=== PATIENT | female | born 1955 | race Caucasian/White ===

== ENCOUNTER 2022-09-24 16:32 | Emergency (ER) | payer OTHER ==
[2022-09-24 17:09] VITALS: BP 136/92; PULSE 72; RESP 18; BMI 28.1
[2022-09-24] MEDS ORDERED: ACETAMINOPHEN 325 MG TABLET (FP) PO ONE (18:06)
[2022-09-24] MEDS ORDERED: ACETAMINOPHEN 325 MG TABLET (FP) ONE (18:10)
[2022-09-24] MEDS ORDERED: oxyCODONE HCL 5 MG TABLET PO ONE (18:40)
[2022-09-24] MEDS ORDERED: oxyCODONE HCL 5 MG TABLET ONE (18:42)
[2022-09-24 19:33] LABS: EPI CELLS 12 /uL (0-25.1); HYALINE CASTS 0 /uL (0-3.1); URINE APPEARANCE CLEAR; URINE BACTERIA 76 /uL (0-1359); URINE BILIRUBIN NEGATIVE (NEGATIVE); URINE COLOR YELLOW; URINE GLUCOSE (UA) NEGATIVE (NEGATIVE); URINE KETONE NEGATIVE (NEGATIVE); URINE LEUK ESTERASE 1+ (NEGATIVE); URINE NITRITE NEGATIVE (NEGATIVE); URINE PROTEIN NEGATIVE (NEGATIVE); URINE RBC 27 /uL (0-23.9); URINE UROBILINOGEN 0.2 mg/dL (0.2-1.0); URINE WBC 59 /uL (0-25.8)
== END 2022-09-25 00:29 | disposition home or self-care (01) ==
LOC: JER 16:32
DX: G44.319 Acute post-traumatic headache, not intractable (principal); R30.0 Dysuria; R11.0 Nausea; W22.8XXA Striking against or struck by other objects, initial encounter; Y93.F2 Activity, caregiving, lifting; Y92.9 Unspecified place or not applicable; Z91.81 History of falling
CPT/HCPCS: 70450-TC; 72125-TC; 81003; 87086; 87186; 99284-25

== ENCOUNTER 2022-12-28 12:32 | Inpatient (IN) | payer OTHER ==
[2022-12-28 13:39] LABS: BASO % 0.3 % (0-2.0); EOS % 2.9 % (0-4.5); HEMATOCRIT 41.5 % (32.4-45.2); HEMOGLOBIN 13.7 GM/dL (10.7-15.3); LYMPH % 17.6 % (8-40); MCH 32.8 pg (25.7-33.7); MEAN CELL VOLUME 99.4 fl (80-96); MEAN PLT VOLUME 7.4 fl (7.5-11.1); MONO % 4.5 % (3.8-10.2); NEUT % 74.7 % (42.8-82.8); PLATELET COUNT 294 10^3/uL (134-434); RBC 4.18 M/mm3 (3.60-5.2); RDW 15.7 % (11.6-15.6)
[2022-12-28 13:47] LABS: INR 1.03 (0.83-1.09)
[2022-12-28 13:50] LABS: ACTIVATED PTT 31.4 SECONDS (25.2-36.5)
[2022-12-28 13:59] LABS: VENOUS BASE EXCESS 2.2 mmol/L (-2-2); VENOUS O2 SATURATION 73.1 % (70-80); VENOUS PCO2 52.4 mmHg (38-52); VENOUS PH 7.357 (7.310-7.410)
[2022-12-28 14:16] LABS: SARS COV-2 MOLECULAR IN-HOUSE NEGATIVE (NEGATIVE)
[2022-12-28 14:27] LABS: POTASSIUM 3.5 mmol/L (3.5-5.1)
[2022-12-28 14:28] LABS: ALBUMIN 3.5 g/dl (3.4-5.0); BLOOD UREA NITROGEN 10.1 mg/dL (7-18); CALCIUM 9.3 mg/dL (8.5-10.1)
[2022-12-28 14:32] LABS: CREATININE 0.3 mg/dL (0.55-1.3)
[2022-12-28 14:34] LABS: BILIRUBIN,TOTAL 0.4 mg/dL (0.2-1)
[2022-12-28 14:37] LABS: N-TERMINAL BNP 149.8 pg/ml (5-125)
[2022-12-28] MEDS ORDERED: AZITHROMYCIN IVPB 500 MG in DEXTROSE 5%-WATER - 250 ML IVPB ONE (14:37)
[2022-12-28 14:53] LABS: ARTERIAL BLD GAS O2 SATURATION 97.6 % (95-98); ARTERIAL BLOOD GAS BASE EXCESS 1.2 mmol/L (-2-2); ARTERIAL BLOOD GAS PO2 103.5 mmHg (80-100); ARTERIAL BLOOD GAS pH 7.382 (7.350-7.450)
[2022-12-28 14:54] LABS: ALLENS TEST POSITIVE
[2022-12-28] MEDS ORDERED: AZITHROMYCIN IVPB 500 MG/250 ML BAG IVPB ONE ×2 (15:06→15:15)
[2022-12-28] MEDS ORDERED: CEFTRIAXONE 1 GM/50 ML BAG ONE (15:06)
[2022-12-28 16:44] LABS: EPI CELLS 1 /uL (0-25.1); HYALINE CASTS 0 /uL (0-3.1); PH,URINE 5.5 (5.0-8.0); URINE APPEARANCE CLEAR; URINE BILIRUBIN NEGATIVE (NEGATIVE); URINE COLOR YELLOW; URINE GLUCOSE (UA) NEGATIVE (NEGATIVE); URINE KETONE NEGATIVE (NEGATIVE); URINE LEUK ESTERASE 2+ (NEGATIVE); URINE NITRITE POSITIVE (NEGATIVE); URINE PROTEIN NEGATIVE (NEGATIVE); URINE RBC 32 /uL (0-23.9); URINE UROBILINOGEN 0.2 mg/dL (0.2-1.0); URINE WBC 188 /uL (0-25.8)
[2022-12-28] MEDS ORDERED: ZOLPIDEM TARTRATE 5 MG TABLET PO ONE (23:53)
[2022-12-28] MEDS ORDERED: ZOLPIDEM TARTRATE 5 MG TABLET ONE (23:55)
[2022-12-29 03:54] VITALS: BMI 28.6
[2022-12-29 08:43] LABS: HEMATOCRIT 39.1 % (32.4-45.2); HEMOGLOBIN 12.6 GM/dL (10.7-15.3); MCH 32.7 pg (25.7-33.7); MCHC 32.1 g/dl (32.0-36.0); MEAN CELL VOLUME 101.6 fl (80-96); MEAN PLT VOLUME 7.7 fl (7.5-11.1); PLATELET COUNT 290 10^3/uL (134-434); RBC 3.85 M/mm3 (3.60-5.2); RDW 15.2 % (11.6-15.6); WHITE BLOOD COUNT 8.3 K/mm3 (4.0-10.0)
[2022-12-29] MEDS ORDERED: SUMAtriptan SUCCINATE 50 MG TABLET PO PRN (09:06)
[2022-12-29 09:10] LABS: POTASSIUM 3.5 mmol/L (3.5-5.1)
[2022-12-29 09:14] LABS: CALCIUM 8.7 mg/dL (8.5-10.1); MAGNESIUM 2.1 mg/dL (1.8-2.4)
[2022-12-29 09:15] LABS: BLOOD UREA NITROGEN 13.3 mg/dL (7-18)
[2022-12-29 09:17] LABS: PHOSPHOROUS 2.7 mg/dL (2.5-4.9)
[2022-12-29 09:18] LABS: CREATININE 0.2 mg/dL (0.55-1.3)
[2022-12-29 09:51] LABS: ANISOCYTOSIS 1+; MACROCYTOSIS 1+
[2022-12-29] MEDS ORDERED: predniSONE 10 MG, predniSONE 5 MG PO SCH (10:00)
[2022-12-29] MEDS ORDERED: VALSARTAN 160 MG TABLET PO SCH (10:00)
[2022-12-29] MEDS ORDERED: predniSONE 10 MG TABLET (UD) PO SCH (10:00)
[2022-12-29] MEDS ORDERED: [UNRECOGNIZED DRUG - OTHER] PO SCH (10:00)
[2022-12-29] MEDS ORDERED: CEFTRIAXONE 1 GM in DEXTROSE 5%-WATER - 50 ML IVPB SCH (10:00)
[2022-12-29] MEDS ORDERED: AZITHROMYCIN IVPB 500 MG/250 ML BAG IVPB SCH (10:00)
[2022-12-29] MEDS ORDERED: TOFACITINIB CITRATE 10 MG PO SCH (10:00)
[2022-12-29] MEDS ORDERED: PATIENT'S OWN MEDICATION (NON-FORMULARY) (Mirabegron [Myrbetriq] 50 MG Tab.Er.24h) PO SCH (10:00)
[2022-12-29] MEDS: clonazePAM 0.5 MG TABLET PO SCH ×2 (10:20→21:52)
[2022-12-29] MEDS ORDERED: ALBUTEROL SULFATE 0.021% (0.63 MG/3 ML) VIAL.NEB NEB PRN (11:01)
[2022-12-29] MEDS ORDERED: oxyCODONE HCL 5 MG TABLET PO PRN (13:56)
[2022-12-29] MEDS ORDERED: ZOLPIDEM TARTRATE 5 MG TABLET PO PRN (22:00)
[2022-12-30] MEDS ORDERED: SUMAtriptan SUCCINATE 50 MG TABLET PO PRN (08:16)
[2022-12-30] MEDS ORDERED: clonazePAM 0.5 MG TABLET PO SCH (10:00)
[2022-12-30] MEDS ORDERED: CEFTRIAXONE 2 GM in DEXTROSE 5%-WATER 100 ML IVPB SCH (10:00)
[2022-12-30] MEDS: CEFTRIAXONE 2 GM in DEXTROSE 5%-WATER 100 ML IVPB SCH (10:16)
[2022-12-30] MEDS: AZITHROMYCIN IVPB 500 MG/250 ML BAG IVPB SCH (10:17)
[2022-12-30] MEDS: oxyCODONE HCL 5 MG TABLET PO PRN ×2 (10:32→21:46)
[2022-12-30] MEDS: VALSARTAN 160 MG TABLET PO SCH (12:43)
[2022-12-30] MEDS: [UNRECOGNIZED DRUG - OTHER] PO SCH ×2 (14:31→21:42)
[2022-12-30] MEDS: clonazePAM 0.5 MG TABLET PO PRN (17:33)
[2022-12-31] MEDS: ZOLPIDEM TARTRATE 5 MG TABLET PO PRN ×2 (01:00→21:23)
[2022-12-31] MEDS: oxyCODONE HCL 5 MG TABLET PO PRN ×3 (06:41→19:02)
[2022-12-31 07:29] LABS: BASO % 0.3 % (0-2.0); EOS % 4.1 % (0-4.5); HEMATOCRIT 38.3 % (32.4-45.2); HEMOGLOBIN 12.4 GM/dL (10.7-15.3); LYMPH % 39.6 % (8-40); MCH 32.7 pg (25.7-33.7); MCHC 32.4 g/dl (32.0-36.0); MEAN CELL VOLUME 100.9 fl (80-96); MEAN PLT VOLUME 8.4 fl (7.5-11.1); MONO % 6.7 % (3.8-10.2); NEUT % 49.3 % (42.8-82.8); PLATELET COUNT 278 10^3/uL (134-434); RBC 3.79 M/mm3 (3.60-5.2); RDW 15.8 % (11.6-15.6)
[2022-12-31 07:42] LABS: WHITE BLOOD COUNT 9.6 K/mm3 (4.0-10.0)
[2022-12-31 07:45] LABS: ALBUMIN 2.9 g/dl (3.4-5.0)
[2022-12-31 07:46] LABS: CALCIUM 8.5 mg/dL (8.5-10.1)
[2022-12-31 07:49] LABS: BILIRUBIN,TOTAL 0.6 mg/dL (0.2-1); CREATININE 0.2 mg/dL (0.55-1.3); TOT PROT 6.1 g/dl (6.4-8.2)
[2022-12-31] MEDS: VALSARTAN 160 MG TABLET PO SCH (09:03)
[2022-12-31] MEDS: CEFTRIAXONE 2 GM in DEXTROSE 5%-WATER 100 ML IVPB SCH (09:04)
[2022-12-31] MEDS: [UNRECOGNIZED DRUG - OTHER] PO SCH ×2 (09:05→21:40)
[2022-12-31] MEDS: AZITHROMYCIN IVPB 500 MG/250 ML BAG IVPB SCH (09:05)
[2022-12-31] MEDS ORDERED: INSULIN (NOVOLOG) ASPART 100 UNITS/ML 10ML VIAL ONE (11:17)
[2022-12-31] MEDS: TOFACITINIB 11 MG PO SCH (12:32)
[2022-12-31] MEDS: PATIENT'S OWN MEDICATION (NON-FORMULARY) (Mirabegron [Myrbetriq] 50 MG) PO SCH ×2 (15:18→15:23)
[2022-12-31] MEDS: NORTRIPTYLINE HCL 25 MG CAPSULE PO SCH ×2 (15:18→21:24)
[2022-12-31] MEDS: clonazePAM 0.5 MG TABLET PO PRN (15:19)
[2022-12-31] MEDS: POLYETHYLENE GLYCOL (HEALTHYLAX) 3350 17 GM PACKET PO SCH (16:03)
[2022-12-31] MEDS: propRANOLol HCL 10 MG TABLET PO SCH (16:39)
[2022-12-31] MEDS: ERTAPENEM SODIUM 1 GM in SODIUM CHLORIDE 50 ML IVPB SCH (21:23)
[2022-12-31] MEDS: SENNOSIDES 8.6MG TABLET (FP) PO SCH (21:24)
[2023-01-01] MEDS: oxyCODONE HCL 5 MG TABLET PO PRN ×2 (06:48→17:21)
[2023-01-01] MEDS: VALSARTAN 160 MG TABLET PO SCH (09:15)
[2023-01-01] MEDS: POLYETHYLENE GLYCOL (HEALTHYLAX) 3350 17 GM PACKET PO SCH (09:15)
[2023-01-01] MEDS: propRANOLol HCL 10 MG TABLET PO SCH (09:16)
[2023-01-01] MEDS: AZITHROMYCIN IVPB 500 MG/250 ML BAG IVPB SCH (09:16)
[2023-01-01] MEDS: NORTRIPTYLINE HCL 25 MG CAPSULE PO SCH ×3 (09:17→21:10)
[2023-01-01] MEDS: TOFACITINIB 11 MG PO SCH (09:18)
[2023-01-01] MEDS: [UNRECOGNIZED DRUG - OTHER] PO SCH ×2 (09:18→21:09)
[2023-01-01] MEDS: PATIENT'S OWN MEDICATION (NON-FORMULARY) (Mirabegron [Myrbetriq] 50 MG) PO SCH (09:19)
[2023-01-01] MEDS: PANTOPRAZOLE 40 MG TABLET PO SCH (11:32)
[2023-01-01] MEDS: ERTAPENEM SODIUM 1 GM in SODIUM CHLORIDE 50 ML IVPB SCH (11:32)
[2023-01-01] MEDS: clonazePAM 0.5 MG TABLET PO PRN (11:32)
[2023-01-01] MEDS: SENNOSIDES 8.6MG TABLET (FP) PO SCH (21:07)
[2023-01-01] MEDS: ZOLPIDEM TARTRATE 5 MG TABLET PO PRN (21:08)
[2023-01-01] MEDS ORDERED: ZOLPIDEM TARTRATE 5 MG TABLET PO ONE (21:21)
[2023-01-02] MEDS: AZITHROMYCIN IVPB 500 MG/250 ML BAG IVPB SCH (09:51)
[2023-01-02] MEDS: POLYETHYLENE GLYCOL (HEALTHYLAX) 3350 17 GM PACKET PO SCH (09:51)
[2023-01-02] MEDS: VALSARTAN 160 MG TABLET PO SCH (09:53)
[2023-01-02] MEDS: propRANOLol HCL 10 MG TABLET PO SCH (09:53)
[2023-01-02] MEDS: PANTOPRAZOLE 40 MG TABLET PO SCH (09:54)
[2023-01-02] MEDS: PATIENT'S OWN MEDICATION (NON-FORMULARY) (Mirabegron [Myrbetriq] 50 MG) PO SCH (09:56)
[2023-01-02] MEDS: NORTRIPTYLINE HCL 25 MG CAPSULE PO SCH ×2 (09:59→21:14)
[2023-01-02] MEDS: [UNRECOGNIZED DRUG - OTHER] PO SCH ×2 (10:05→21:14)
[2023-01-02] MEDS: TOFACITINIB 11 MG PO SCH (10:06)
[2023-01-02] MEDS: ERTAPENEM SODIUM 1 GM in SODIUM CHLORIDE 50 ML IVPB SCH (10:39)
[2023-01-02] MEDS: oxyCODONE HCL 5 MG TABLET PO PRN ×2 (11:26→21:14)
[2023-01-02] MEDS: HEPARIN NA (PORCINE) 5,000 UNITS/ML 1ML VIAL SQ SCH ×2 (11:28→21:14)
[2023-01-02] MEDS: amLODIPine BESYLATE 5 MG TABLET (FP) PO SCH (11:28)
[2023-01-02] MEDS: ALBUTEROL SULFATE 0.021% (0.63 MG/3 ML) VIAL.NEB NEB PRN (15:16)
[2023-01-02] MEDS ORDERED: FUROSEMIDE 40 MG/5 ML UNIT-DOSE CUP PO ONE (16:55)
[2023-01-02] MEDS ORDERED: FUROSEMIDE 40 MG TABLET (FP) PO ONE (17:15)
[2023-01-02] MEDS: SENNOSIDES 8.6MG TABLET (FP) PO SCH (21:14)
[2023-01-02] MEDS: clonazePAM 0.5 MG TABLET PO PRN (21:14)
[2023-01-03] MEDS: oxyCODONE HCL 5 MG TABLET PO PRN ×3 (02:27→21:39)
[2023-01-03 08:12] LABS: CHLORIDE 101 mmol/L (98-107); POTASSIUM 3.5 mmol/L (3.5-5.1); SODIUM 141 mmol/L (136-145)
[2023-01-03 08:19] LABS: ALBUMIN 2.9 g/dl (3.4-5.0); CALCIUM 8.5 mg/dL (8.5-10.1)
[2023-01-03 08:20] LABS: ANION GAP 5 mmol/L (4-13); BLOOD UREA NITROGEN 11.4 mg/dL (7-18); CO2 34 mmol/L (21-32); GLUCOSE,RANDOM 85 mg/dL (74-106)
[2023-01-03 08:21] LABS: CREATININE < 0.2 mg/dL (0.55-1.3); SGOT/AST 15 U/L (15-37)
[2023-01-03 08:22] LABS: BILIRUBIN,TOTAL 0.3 mg/dL (0.2-1); TOT PROT 5.9 g/dl (6.4-8.2)
[2023-01-03 08:23] LABS: ALK PHOS 56 U/L (45-117); SGPT/ALT 20 U/L (13-61)
[2023-01-03 08:37] LABS: BASO % 0.5 % (0-2.0); EOS % 3.1 % (0-4.5); HEMATOCRIT 37.4 % (32.4-45.2); HEMOGLOBIN 11.9 GM/dL (10.7-15.3); MCH 32.7 pg (25.7-33.7); MCHC 31.8 g/dl (32.0-36.0); MEAN CELL VOLUME 102.6 fl (80-96); MEAN PLT VOLUME 8.4 fl (7.5-11.1); NEUT % 59.4 % (42.8-82.8); PLATELET COUNT 267 10^3/uL (134-434); RBC 3.64 M/mm3 (3.60-5.2); RDW 14.9 % (11.6-15.6); WHITE BLOOD COUNT 8.5 K/mm3 (4.0-10.0)
[2023-01-03] MEDS: HEPARIN NA (PORCINE) 5,000 UNITS/ML 1ML VIAL SQ SCH ×2 (09:18→21:15)
[2023-01-03] MEDS: PANTOPRAZOLE 40 MG TABLET PO SCH (09:19)
[2023-01-03] MEDS: POLYETHYLENE GLYCOL (HEALTHYLAX) 3350 17 GM PACKET PO SCH (09:20)
[2023-01-03] MEDS: amLODIPine BESYLATE 5 MG TABLET (FP) PO SCH (09:20)
[2023-01-03] MEDS: clonazePAM 0.5 MG TABLET PO PRN ×2 (09:20→21:15)
[2023-01-03] MEDS: VALSARTAN 160 MG TABLET PO SCH (09:20)
[2023-01-03] MEDS: propRANOLol HCL 10 MG TABLET PO SCH (09:22)
[2023-01-03] MEDS: NORTRIPTYLINE HCL 25 MG CAPSULE PO SCH ×2 (09:22→21:15)
[2023-01-03] MEDS: [UNRECOGNIZED DRUG - OTHER] PO SCH ×2 (09:23→21:14)
[2023-01-03] MEDS: TOFACITINIB 11 MG PO SCH (09:23)
[2023-01-03 09:37] LABS: ANISOCYTOSIS 0; MACROCYTOSIS 2+
[2023-01-03] MEDS: PATIENT'S OWN MEDICATION (NON-FORMULARY) (Mirabegron [Myrbetriq] 50 MG) PO SCH (09:50)
[2023-01-03] MEDS: ERTAPENEM SODIUM 1 GM in SODIUM CHLORIDE 50 ML IVPB SCH (10:25)
[2023-01-03] MEDS: AZITHROMYCIN IVPB 500 MG/250 ML BAG IVPB SCH (10:48)
[2023-01-03] MEDS: POTASSIUM CHLORIDE ORAL LIQUID 20 MEQ/15 ML PO SCH (12:12)
[2023-01-03] MEDS: FUROSEMIDE 40 MG TABLET (FP) PO SCH (12:12)
[2023-01-03] MEDS: PHENOL 177 ML SPRAY BOTTLE MM PRN ×2 (16:46→21:15)
[2023-01-03] MEDS: SENNOSIDES 8.6MG TABLET (FP) PO SCH (21:14)
[2023-01-03] MEDS: ALBUTEROL SULFATE 0.021% (0.63 MG/3 ML) VIAL.NEB NEB PRN (22:33)
[2023-01-04] MEDS: clonazePAM 0.5 MG TABLET PO PRN ×2 (06:33→21:04)
[2023-01-04] MEDS: AZITHROMYCIN IVPB 500 MG/250 ML BAG IVPB SCH (10:00)
[2023-01-04] MEDS: AMINO ACIDS/PROTEIN HYDROLYS 30 ML LIQUID.PKT PO SCH (10:55)
[2023-01-04] MEDS: VALSARTAN 160 MG TABLET PO SCH (10:56)
[2023-01-04] MEDS: MULTIVITAMINS (DAILY MVI) TABLET (FP) PO SCH (10:58)
[2023-01-04] MEDS: HEPARIN NA (PORCINE) 5,000 UNITS/ML 1ML VIAL SQ SCH ×2 (10:58→21:03)
[2023-01-04] MEDS: FUROSEMIDE 40 MG TABLET (FP) PO SCH (10:59)
[2023-01-04] MEDS: propRANOLol HCL 10 MG TABLET PO SCH (10:59)
[2023-01-04] MEDS: amLODIPine BESYLATE 5 MG TABLET (FP) PO SCH (10:59)
[2023-01-04] MEDS: ERTAPENEM SODIUM 1 GM in SODIUM CHLORIDE 50 ML IVPB SCH (11:00)
[2023-01-04] MEDS: POTASSIUM CHLORIDE ORAL LIQUID 20 MEQ/15 ML PO SCH (11:00)
[2023-01-04] MEDS: PANTOPRAZOLE 40 MG TABLET PO SCH (11:02)
[2023-01-04] MEDS: PATIENT'S OWN MEDICATION (NON-FORMULARY) (Mirabegron [Myrbetriq] 50 MG) PO SCH (11:02)
[2023-01-04] MEDS: ASCORBIC ACID 500 MG TABLET (FP) PO SCH (11:05)
[2023-01-04] MEDS: TOFACITINIB 11 MG PO SCH (11:12)
[2023-01-04] MEDS: [UNRECOGNIZED DRUG - OTHER] PO SCH ×2 (11:17→21:04)
[2023-01-04] MEDS: NORTRIPTYLINE HCL 25 MG CAPSULE PO SCH ×2 (11:22→21:03)
[2023-01-04] MEDS: POLYETHYLENE GLYCOL (HEALTHYLAX) 3350 17 GM PACKET PO SCH (14:41)
[2023-01-04] MEDS: oxyCODONE HCL 5 MG TABLET PO PRN (16:30)
[2023-01-04] MEDS: SENNOSIDES 8.6MG TABLET (FP) PO SCH (21:04)
[2023-01-04] MEDS: PHENOL 177 ML SPRAY BOTTLE MM PRN (21:16)
[2023-01-05] MEDS: oxyCODONE HCL 5 MG TABLET PO PRN (06:47)
[2023-01-05] MEDS: AMINO ACIDS/PROTEIN HYDROLYS 30 ML LIQUID.PKT PO SCH (10:21)
[2023-01-05] MEDS: MULTIVITAMINS (DAILY MVI) TABLET (FP) PO SCH (10:22)
[2023-01-05] MEDS: ASCORBIC ACID 500 MG TABLET (FP) PO SCH (10:22)
[2023-01-05] MEDS: propRANOLol HCL 10 MG TABLET PO SCH (10:22)
[2023-01-05] MEDS: NORTRIPTYLINE HCL 25 MG CAPSULE PO SCH ×2 (10:22→22:04)
[2023-01-05] MEDS: VALSARTAN 160 MG TABLET PO SCH (10:22)
[2023-01-05] MEDS: POLYETHYLENE GLYCOL (HEALTHYLAX) 3350 17 GM PACKET PO SCH (10:22)
[2023-01-05] MEDS: [UNRECOGNIZED DRUG - OTHER] PO SCH ×3 (10:22→22:48)
[2023-01-05] MEDS: PANTOPRAZOLE 40 MG TABLET PO SCH (10:22)
[2023-01-05] MEDS: amLODIPine BESYLATE 5 MG TABLET (FP) PO SCH (10:22)
[2023-01-05] MEDS: FUROSEMIDE 40 MG TABLET (FP) PO SCH (10:22)
[2023-01-05] MEDS: POTASSIUM CHLORIDE ORAL LIQUID 20 MEQ/15 ML PO SCH (10:22)
[2023-01-05] MEDS: PATIENT'S OWN MEDICATION (NON-FORMULARY) (Mirabegron [Myrbetriq] 50 MG) PO SCH (10:22)
[2023-01-05] MEDS: HEPARIN NA (PORCINE) 5,000 UNITS/ML 1ML VIAL SQ SCH ×2 (10:22→22:02)
[2023-01-05] MEDS: TOFACITINIB 11 MG PO SCH (10:30)
[2023-01-05] MEDS: ERTAPENEM SODIUM 1 GM in SODIUM CHLORIDE 50 ML IVPB SCH (12:28)
[2023-01-05] MEDS: AZITHROMYCIN IVPB 500 MG/250 ML BAG IVPB SCH (13:29)
[2023-01-05] MEDS: ALBUTEROL SULFATE 0.021% (0.63 MG/3 ML) VIAL.NEB NEB PRN (15:36)
[2023-01-05] MEDS: SENNOSIDES 8.6MG TABLET (FP) PO SCH (22:03)
[2023-01-05] MEDS ORDERED: ZOLPIDEM TARTRATE 5 MG TABLET PO SCH (22:45)
[2023-01-06 08:19] LABS: HEMOGLOBIN 13.1 GM/dL (10.7-15.3); MCH 32.5 pg (25.7-33.7); MCHC 31.8 g/dl (32.0-36.0); MEAN PLT VOLUME 7.9 fl (7.5-11.1); PLATELET COUNT 318 10^3/uL (134-434); RBC 4.02 M/mm3 (3.60-5.2); WHITE BLOOD COUNT 9.7 K/mm3 (4.0-10.0)
[2023-01-06 08:23] LABS: POTASSIUM 3.3 mmol/L (3.5-5.1)
[2023-01-06 08:36] LABS: BLOOD UREA NITROGEN 12.1 mg/dL (7-18); CALCIUM 8.8 mg/dL (8.5-10.1)
[2023-01-06 08:40] LABS: BILIRUBIN,TOTAL 0.5 mg/dL (0.2-1)
[2023-01-06 08:41] LABS: TOT PROT 6.2 g/dl (6.4-8.2)
[2023-01-06 08:42] LABS: CREATININE 0.3 mg/dL (0.55-1.3)
[2023-01-06 09:23] LABS: ANISOCYTOSIS 0; MACROCYTOSIS 0
[2023-01-06] MEDS ORDERED: INSULIN (NOVOLOG) ASPART 100 UNITS/ML 10ML VIAL ONE (10:59)
[2023-01-06] MEDS: ERTAPENEM SODIUM 1 GM in SODIUM CHLORIDE 50 ML IVPB SCH (11:09)
[2023-01-06] MEDS: PANTOPRAZOLE SODIUM 40 MG VIAL IVPUSH SCH (11:09)
[2023-01-06] MEDS: FUROSEMIDE 40 MG/4 ML INJECTABLE VIAL IVPUSH SCH (11:09)
[2023-01-06] MEDS: HEPARIN NA (PORCINE) 5,000 UNITS/ML 1ML VIAL SQ SCH ×2 (11:10→21:11)
[2023-01-06] MEDS: NYSTATIN 500,000 UNITS/5 ML SUSPENSION PO SCH ×2 (12:15→17:07)
[2023-01-06] MEDS: FLUCONAZOLE 200 MG/NS 100 ML IVPB SCH (12:30)
[2023-01-06] MEDS: AMINO ACIDS/PROTEIN HYDROLYS 30 ML LIQUID.PKT PO SCH (15:10)
[2023-01-06] MEDS: POTASSIUM CHLORIDE ORAL LIQUID 20 MEQ/15 ML PO SCH (15:10)
[2023-01-06] MEDS: NORTRIPTYLINE HCL 25 MG CAPSULE PO SCH ×2 (15:11→21:13)
[2023-01-06] MEDS: MULTIVITAMINS (DAILY MVI) TABLET (FP) PO SCH (15:12)
[2023-01-06] MEDS: VALSARTAN 160 MG TABLET PO SCH (15:12)
[2023-01-06] MEDS: amLODIPine BESYLATE 5 MG TABLET (FP) PO SCH (15:12)
[2023-01-06] MEDS: ASCORBIC ACID 500 MG TABLET (FP) PO SCH (15:13)
[2023-01-06] MEDS: POLYETHYLENE GLYCOL (HEALTHYLAX) 3350 17 GM PACKET PO SCH (16:02)
[2023-01-06] MEDS: propRANOLol HCL 10 MG TABLET PO SCH (16:02)
[2023-01-06] MEDS: PATIENT'S OWN MEDICATION (NON-FORMULARY) (Mirabegron [Myrbetriq] 50 MG) PO SCH (16:02)
[2023-01-06] MEDS: FUROSEMIDE 40 MG TABLET (FP) PO SCH (16:10)
[2023-01-06] MEDS: PANTOPRAZOLE 40 MG TABLET PO SCH (16:10)
[2023-01-06] MEDS: clonazePAM 0.5 MG TABLET PO PRN (17:07)
[2023-01-06] MEDS: [UNRECOGNIZED DRUG - OTHER] PO SCH ×2 (18:18→21:13)
[2023-01-06] MEDS: TOFACITINIB 11 MG PO SCH (18:19)
[2023-01-06] MEDS: SENNOSIDES 8.6MG TABLET (FP) PO SCH (21:11)
[2023-01-06] MEDS: ZOLPIDEM TARTRATE 5 MG TABLET PO PRN (21:12)
[2023-01-06] MEDS ORDERED: ACETAMINOPHEN 1000 MG/100 ML BAG IVPB ONE (23:49)
[2023-01-07] MEDS: NYSTATIN 500,000 UNITS/5 ML SUSPENSION PO SCH ×5 (05:58→23:04)
[2023-01-07] MEDS: AMINO ACIDS/PROTEIN HYDROLYS 30 ML LIQUID.PKT PO SCH (10:17)
[2023-01-07] MEDS: PANTOPRAZOLE SODIUM 40 MG VIAL IVPUSH SCH (10:17)
[2023-01-07] MEDS: FLUCONAZOLE 200 MG/NS 100 ML IVPB SCH (10:18)
[2023-01-07] MEDS: amLODIPine BESYLATE 5 MG TABLET (FP) PO SCH (10:18)
[2023-01-07] MEDS: MULTIVITAMINS (DAILY MVI) TABLET (FP) PO SCH (10:19)
[2023-01-07] MEDS: ERTAPENEM SODIUM 1 GM in SODIUM CHLORIDE 50 ML IVPB SCH (10:19)
[2023-01-07] MEDS: POTASSIUM CHLORIDE ORAL LIQUID 20 MEQ/15 ML PO SCH (10:19)
[2023-01-07] MEDS: ASCORBIC ACID 500 MG TABLET (FP) PO SCH (10:19)
[2023-01-07] MEDS: FUROSEMIDE 40 MG/4 ML INJECTABLE VIAL IVPUSH SCH (10:19)
[2023-01-07] MEDS: VALSARTAN 160 MG TABLET PO SCH (10:19)
[2023-01-07] MEDS: HEPARIN NA (PORCINE) 5,000 UNITS/ML 1ML VIAL SQ SCH ×2 (10:19→21:05)
[2023-01-07] MEDS: propRANOLol HCL 10 MG TABLET PO SCH (10:20)
[2023-01-07] MEDS: NORTRIPTYLINE HCL 25 MG CAPSULE PO SCH ×2 (10:20→21:06)
[2023-01-07] MEDS: TOFACITINIB 11 MG PO SCH (10:22)
[2023-01-07] MEDS: POLYETHYLENE GLYCOL (HEALTHYLAX) 3350 17 GM PACKET PO SCH (10:22)
[2023-01-07] MEDS: PATIENT'S OWN MEDICATION (NON-FORMULARY) (Mirabegron [Myrbetriq] 50 MG) PO SCH (17:20)
[2023-01-07] MEDS: [UNRECOGNIZED DRUG - OTHER] PO SCH ×2 (17:20→21:06)
[2023-01-07] MEDS: ZOLPIDEM TARTRATE 5 MG TABLET PO PRN (21:05)
[2023-01-07] MEDS: SENNOSIDES 8.6MG TABLET (FP) PO SCH (21:06)
[2023-01-07] MEDS: ACETAMINOPHEN 325 MG TABLET (FP) PO PRN (23:37)
[2023-01-08] MEDS: NYSTATIN 500,000 UNITS/5 ML SUSPENSION PO SCH ×4 (05:01→23:13)
[2023-01-08] MEDS: AMINO ACIDS/PROTEIN HYDROLYS 30 ML LIQUID.PKT PO SCH (09:31)
[2023-01-08] MEDS: FLUCONAZOLE 200 MG/NS 100 ML IVPB SCH (09:31)
[2023-01-08] MEDS: POLYETHYLENE GLYCOL (HEALTHYLAX) 3350 17 GM PACKET PO SCH (09:32)
[2023-01-08] MEDS: MULTIVITAMINS (DAILY MVI) TABLET (FP) PO SCH (09:33)
[2023-01-08] MEDS: FUROSEMIDE 40 MG/4 ML INJECTABLE VIAL IVPUSH SCH (09:33)
[2023-01-08] MEDS: HEPARIN NA (PORCINE) 5,000 UNITS/ML 1ML VIAL SQ SCH ×2 (09:33→21:33)
[2023-01-08] MEDS: VALSARTAN 160 MG TABLET PO SCH (09:33)
[2023-01-08] MEDS: ASCORBIC ACID 500 MG TABLET (FP) PO SCH (09:34)
[2023-01-08] MEDS: POTASSIUM CHLORIDE ORAL LIQUID 20 MEQ/15 ML PO SCH (09:34)
[2023-01-08] MEDS: amLODIPine BESYLATE 5 MG TABLET (FP) PO SCH (09:34)
[2023-01-08] MEDS: PANTOPRAZOLE SODIUM 40 MG VIAL IVPUSH SCH (09:34)
[2023-01-08] MEDS: TOFACITINIB 11 MG PO SCH (09:35)
[2023-01-08] MEDS: propRANOLol HCL 10 MG TABLET PO SCH (09:35)
[2023-01-08] MEDS: NORTRIPTYLINE HCL 25 MG CAPSULE PO SCH ×2 (09:35→21:33)
[2023-01-08] MEDS: [UNRECOGNIZED DRUG - OTHER] PO SCH ×2 (09:44→21:32)
[2023-01-08] MEDS: PATIENT'S OWN MEDICATION (NON-FORMULARY) (Mirabegron [Myrbetriq] 50 MG) PO SCH (09:47)
[2023-01-08] MEDS ORDERED: INSULIN (NOVOLOG) ASPART 100 UNITS/ML 10ML VIAL ONE (10:29)
[2023-01-08] MEDS: POTASSIUM CHLORIDE ORAL LIQUID 20 MEQ/15 ML PO ONE ×2 (11:55→12:00)
[2023-01-08] MEDS: ERTAPENEM SODIUM 1 GM in SODIUM CHLORIDE 50 ML IVPB SCH (11:55)
[2023-01-08] MEDS: oxyCODONE HCL 5 MG TABLET PO PRN (11:56)
[2023-01-08] MEDS: ZOLPIDEM TARTRATE 5 MG TABLET PO PRN (21:33)
[2023-01-08] MEDS: ACETAMINOPHEN 325 MG TABLET (FP) PO PRN (21:34)
[2023-01-08] MEDS: SENNOSIDES 8.6MG TABLET (FP) PO SCH (21:34)
[2023-01-09] MEDS: NYSTATIN 500,000 UNITS/5 ML SUSPENSION PO SCH ×3 (05:39→17:48)
[2023-01-09] MEDS: oxyCODONE HCL 5 MG TABLET PO PRN ×2 (08:29→14:20)
[2023-01-09] MEDS: FUROSEMIDE 40 MG/4 ML INJECTABLE VIAL IVPUSH SCH (09:04)
[2023-01-09] MEDS: PANTOPRAZOLE SODIUM 40 MG VIAL IVPUSH SCH (09:04)
[2023-01-09] MEDS: AMINO ACIDS/PROTEIN HYDROLYS 30 ML LIQUID.PKT PO SCH (09:30)
[2023-01-09] MEDS: TOFACITINIB 11 MG PO SCH (09:31)
[2023-01-09] MEDS: POLYETHYLENE GLYCOL (HEALTHYLAX) 3350 17 GM PACKET PO SCH (09:32)
[2023-01-09] MEDS: FLUCONAZOLE 100 MG TABLET (UD) PO SCH (09:32)
[2023-01-09] MEDS: VALSARTAN 160 MG TABLET PO SCH (09:33)
[2023-01-09] MEDS: amLODIPine BESYLATE 5 MG TABLET (FP) PO SCH (09:33)
[2023-01-09] MEDS: propRANOLol HCL 10 MG TABLET PO SCH (09:33)
[2023-01-09] MEDS: PATIENT'S OWN MEDICATION (NON-FORMULARY) (Mirabegron [Myrbetriq] 50 MG) PO SCH (09:33)
[2023-01-09] MEDS: ASCORBIC ACID 500 MG TABLET (FP) PO SCH (09:35)
[2023-01-09] MEDS: NORTRIPTYLINE HCL 25 MG CAPSULE PO SCH ×2 (09:35→21:42)
[2023-01-09] MEDS: MULTIVITAMINS (DAILY MVI) TABLET (FP) PO SCH (09:35)
[2023-01-09] MEDS: [UNRECOGNIZED DRUG - OTHER] PO SCH ×2 (10:05→21:42)
[2023-01-09] MEDS: POTASSIUM CHLORIDE ORAL LIQUID 20 MEQ/15 ML PO SCH (11:03)
[2023-01-09] MEDS: HEPARIN NA (PORCINE) 5,000 UNITS/ML 1ML VIAL SQ SCH (11:03)
[2023-01-09] MEDS: clonazePAM 0.5 MG TABLET PO PRN (14:20)
[2023-01-09] MEDS ORDERED: clonazePAM 0.5 MG TABLET PO PRN (20:43)
[2023-01-09] MEDS: ZOLPIDEM TARTRATE 5 MG TABLET PO PRN (21:42)
[2023-01-09] MEDS: SENNOSIDES 8.6MG TABLET (FP) PO SCH (21:42)
[2023-01-10] MEDS: NYSTATIN 500,000 UNITS/5 ML SUSPENSION PO SCH ×5 (00:20→23:05)
[2023-01-10 07:26] LABS: BASO % 0.2 % (0-2.0); EOS % 0.5 % (0-4.5); HEMATOCRIT 42.8 % (32.4-45.2); HEMOGLOBIN 13.8 GM/dL (10.7-15.3); LYMPH % 29.2 % (8-40); MCH 33.2 pg (25.7-33.7); MCHC 32.2 g/dl (32.0-36.0); MEAN CELL VOLUME 103.1 fl (80-96); MONO % 8.2 % (3.8-10.2); NEUT % 61.9 % (42.8-82.8); PLATELET COUNT 338 10^3/uL (134-434); RBC 4.15 M/mm3 (3.60-5.2); RDW 14.9 % (11.6-15.6); WHITE BLOOD COUNT 7.1 K/mm3 (4.0-10.0)
[2023-01-10 07:31] LABS: POTASSIUM 4.3 mmol/L (3.5-5.1)
[2023-01-10 07:34] LABS: BLOOD UREA NITROGEN 19.1 mg/dL (7-18); CALCIUM 9.4 mg/dL (8.5-10.1)
[2023-01-10 07:35] LABS: ALBUMIN 3.3 g/dl (3.4-5.0)
[2023-01-10 07:38] LABS: CREATININE 0.3 mg/dL (0.55-1.3)
[2023-01-10 07:40] LABS: BILIRUBIN,TOTAL 0.4 mg/dL (0.2-1); TOT PROT 6.9 g/dl (6.4-8.2)
[2023-01-10] MEDS: AMINO ACIDS/PROTEIN HYDROLYS 30 ML LIQUID.PKT PO SCH (08:24)
[2023-01-10] MEDS: VALSARTAN 160 MG TABLET PO SCH (09:33)
[2023-01-10] MEDS: FLUCONAZOLE 100 MG TABLET (UD) PO SCH (09:33)
[2023-01-10] MEDS: propRANOLol HCL 10 MG TABLET PO SCH (09:34)
[2023-01-10] MEDS: FUROSEMIDE 40 MG/4 ML INJECTABLE VIAL IVPUSH SCH (09:34)
[2023-01-10] MEDS: POLYETHYLENE GLYCOL (HEALTHYLAX) 3350 17 GM PACKET PO SCH (09:34)
[2023-01-10] MEDS: amLODIPine BESYLATE 5 MG TABLET (FP) PO SCH (09:35)
[2023-01-10] MEDS: NORTRIPTYLINE HCL 25 MG CAPSULE PO SCH ×2 (09:35→21:30)
[2023-01-10] MEDS: MULTIVITAMINS (DAILY MVI) TABLET (FP) PO SCH (09:36)
[2023-01-10] MEDS: ASCORBIC ACID 500 MG TABLET (FP) PO SCH (09:36)
[2023-01-10] MEDS: TOFACITINIB 11 MG PO SCH (09:36)
[2023-01-10] MEDS: PANTOPRAZOLE SODIUM 40 MG VIAL IVPUSH SCH (09:36)
[2023-01-10] MEDS: [UNRECOGNIZED DRUG - OTHER] PO SCH ×2 (09:36→21:35)
[2023-01-10] MEDS: oxyCODONE HCL 5 MG TABLET PO PRN (09:37)
[2023-01-10] MEDS: PATIENT'S OWN MEDICATION (NON-FORMULARY) (Mirabegron [Myrbetriq] 50 MG) PO SCH (10:36)
[2023-01-10] MEDS: POTASSIUM CHLORIDE ORAL LIQUID 20 MEQ/15 ML PO SCH (14:12)
[2023-01-10] MEDS: SENNOSIDES 8.6MG TABLET (FP) PO SCH ×2 (21:29→23:03)
[2023-01-10] MEDS: ZOLPIDEM TARTRATE 5 MG TABLET PO PRN (21:29)
[2023-01-11] MEDS: NYSTATIN 500,000 UNITS/5 ML SUSPENSION PO SCH ×4 (06:07→23:09)
[2023-01-11] MEDS: TOFACITINIB 11 MG PO SCH (09:15)
[2023-01-11] MEDS: ASCORBIC ACID 500 MG TABLET (FP) PO SCH (09:15)
[2023-01-11] MEDS: amLODIPine BESYLATE 5 MG TABLET (FP) PO SCH (09:15)
[2023-01-11] MEDS: FUROSEMIDE 40 MG/4 ML INJECTABLE VIAL IVPUSH SCH (09:15)
[2023-01-11] MEDS: AMINO ACIDS/PROTEIN HYDROLYS 30 ML LIQUID.PKT PO SCH (09:15)
[2023-01-11] MEDS: propRANOLol HCL 10 MG TABLET PO SCH (09:15)
[2023-01-11] MEDS: POTASSIUM CHLORIDE TABS 20 MEQ TABLET.ER (FP) PO SCH (09:15)
[2023-01-11] MEDS: PANTOPRAZOLE SODIUM 40 MG VIAL IVPUSH SCH (09:15)
[2023-01-11] MEDS: FLUCONAZOLE 100 MG TABLET (UD) PO SCH (09:15)
[2023-01-11] MEDS: NORTRIPTYLINE HCL 25 MG CAPSULE PO SCH ×2 (09:15→21:20)
[2023-01-11] MEDS: MULTIVITAMINS (DAILY MVI) TABLET (FP) PO SCH (09:15)
[2023-01-11] MEDS: VALSARTAN 160 MG TABLET PO SCH (09:15)
[2023-01-11] MEDS: POLYETHYLENE GLYCOL (HEALTHYLAX) 3350 17 GM PACKET PO SCH (10:32)
[2023-01-11] MEDS: PATIENT'S OWN MEDICATION (NON-FORMULARY) (Mirabegron [Myrbetriq] 50 MG) PO SCH (10:33)
[2023-01-11] MEDS: [UNRECOGNIZED DRUG - OTHER] PO SCH ×2 (10:34→21:20)
[2023-01-11] MEDS: ZOLPIDEM TARTRATE 5 MG TABLET PO PRN (21:19)
[2023-01-11] MEDS: SENNOSIDES 8.6MG TABLET (FP) PO SCH (21:20)
[2023-01-12] MEDS: NYSTATIN 500,000 UNITS/5 ML SUSPENSION PO SCH ×4 (06:14→23:03)
[2023-01-12] MEDS: AMINO ACIDS/PROTEIN HYDROLYS 30 ML LIQUID.PKT PO SCH (09:00)
[2023-01-12] MEDS: FUROSEMIDE 40 MG/4 ML INJECTABLE VIAL IVPUSH SCH (10:37)
[2023-01-12] MEDS: MULTIVITAMINS (DAILY MVI) TABLET (FP) PO SCH (10:38)
[2023-01-12] MEDS: POTASSIUM CHLORIDE TABS 20 MEQ TABLET.ER (FP) PO SCH (10:38)
[2023-01-12] MEDS: ASCORBIC ACID 500 MG TABLET (FP) PO SCH (10:38)
[2023-01-12] MEDS: POLYETHYLENE GLYCOL (HEALTHYLAX) 3350 17 GM PACKET PO SCH (10:39)
[2023-01-12] MEDS: amLODIPine BESYLATE 5 MG TABLET (FP) PO SCH (10:39)
[2023-01-12] MEDS: propRANOLol HCL 10 MG TABLET PO SCH (10:39)
[2023-01-12] MEDS: VALSARTAN 160 MG TABLET PO SCH (10:39)
[2023-01-12] MEDS: NORTRIPTYLINE HCL 25 MG CAPSULE PO SCH ×2 (10:43→22:52)
[2023-01-12] MEDS: PANTOPRAZOLE SODIUM 40 MG VIAL IVPUSH SCH (10:52)
[2023-01-12] MEDS: [UNRECOGNIZED DRUG - OTHER] PO SCH ×2 (11:00→21:19)
[2023-01-12] MEDS: oxyCODONE HCL 5 MG TABLET PO PRN (11:19)
[2023-01-12 13:08] LABS: ARTERIAL BLOOD GAS BASE EXCESS 11.7 mmol/L (-2-2); ARTERIAL BLOOD GAS PO2 64.8 mmHg (80-100); ARTERIAL BLOOD GAS pH 7.293 (7.350-7.450)
[2023-01-12 13:10] LABS: ALLENS TEST POSITIVE
[2023-01-12] MEDS: TOFACITINIB 11 MG PO SCH (15:15)
[2023-01-12] MEDS: PATIENT'S OWN MEDICATION (NON-FORMULARY) (Mirabegron [Myrbetriq] 50 MG) PO SCH (19:29)
[2023-01-12] MEDS: SENNOSIDES 8.6MG TABLET (FP) PO SCH (21:18)
[2023-01-13] MEDS: NYSTATIN 500,000 UNITS/5 ML SUSPENSION PO SCH ×4 (06:28→23:35)
[2023-01-13] MEDS: oxyCODONE HCL 5 MG TABLET PO PRN (08:15)
[2023-01-13] MEDS: AMINO ACIDS/PROTEIN HYDROLYS 30 ML LIQUID.PKT PO SCH (09:00)
[2023-01-13] MEDS: TOFACITINIB 11 MG PO SCH (09:06)
[2023-01-13] MEDS: PANTOPRAZOLE SODIUM 40 MG VIAL IVPUSH SCH (09:07)
[2023-01-13] MEDS: MULTIVITAMINS (DAILY MVI) TABLET (FP) PO SCH (09:07)
[2023-01-13] MEDS: FUROSEMIDE 40 MG/4 ML INJECTABLE VIAL IVPUSH SCH (09:07)
[2023-01-13] MEDS: VALSARTAN 160 MG TABLET PO SCH (09:08)
[2023-01-13] MEDS: ASCORBIC ACID 500 MG TABLET (FP) PO SCH (09:08)
[2023-01-13] MEDS: POLYETHYLENE GLYCOL (HEALTHYLAX) 3350 17 GM PACKET PO SCH (09:10)
[2023-01-13] MEDS: POTASSIUM CHLORIDE TABS 20 MEQ TABLET.ER (FP) PO SCH (09:10)
[2023-01-13] MEDS: propRANOLol HCL 10 MG TABLET PO SCH (09:10)
[2023-01-13] MEDS: NORTRIPTYLINE HCL 25 MG CAPSULE PO SCH ×2 (09:11→21:08)
[2023-01-13] MEDS: amLODIPine BESYLATE 5 MG TABLET (FP) PO SCH (09:12)
[2023-01-13] MEDS ORDERED: clonazePAM 0.5 MG TABLET PO PRN ×2 (10:21→10:22)
[2023-01-13] MEDS: [UNRECOGNIZED DRUG - OTHER] PO SCH ×2 (17:12→21:07)
[2023-01-13] MEDS: PATIENT'S OWN MEDICATION (NON-FORMULARY) (Mirabegron [Myrbetriq] 50 MG) PO SCH (17:13)
[2023-01-13] MEDS: SENNOSIDES 8.6MG TABLET (FP) PO SCH (21:08)
[2023-01-14] MEDS: NYSTATIN 500,000 UNITS/5 ML SUSPENSION PO SCH ×3 (05:46→18:13)
[2023-01-14] MEDS ORDERED: FUROSEMIDE 40 MG TABLET (FP) PO SCH (10:00)
[2023-01-14] MEDS ORDERED: PANTOPRAZOLE 40 MG TABLET PO SCH (10:00)
[2023-01-14] MEDS: AMINO ACIDS/PROTEIN HYDROLYS 30 ML LIQUID.PKT PO SCH (11:25)
[2023-01-14] MEDS ORDERED: ALBUTEROL SO4 0.083% IH SOL 2.5 MG/3 ML VIAL.NEB. NEB ONE (11:25)
[2023-01-14] MEDS: POLYETHYLENE GLYCOL (HEALTHYLAX) 3350 17 GM PACKET PO SCH (11:27)
[2023-01-14] MEDS: propRANOLol HCL 10 MG TABLET PO SCH (11:27)
[2023-01-14] MEDS: VALSARTAN 160 MG TABLET PO SCH (11:27)
[2023-01-14] MEDS: MULTIVITAMINS (DAILY MVI) TABLET (FP) PO SCH (11:28)
[2023-01-14] MEDS: POTASSIUM CHLORIDE TABS 20 MEQ TABLET.ER (FP) PO SCH (11:28)
[2023-01-14] MEDS: NORTRIPTYLINE HCL 25 MG CAPSULE PO SCH (11:28)
[2023-01-14] MEDS: ASCORBIC ACID 500 MG TABLET (FP) PO SCH (11:28)
[2023-01-14] MEDS: TOFACITINIB 11 MG PO SCH (11:30)
[2023-01-14] MEDS: ACETAMINOPHEN 325 MG TABLET (FP) PO PRN (11:31)
[2023-01-14] MEDS: ALBUTEROL SULFATE 0.021% (0.63 MG/3 ML) VIAL.NEB NEB PRN (11:37)
[2023-01-14] MEDS: [UNRECOGNIZED DRUG - OTHER] PO SCH (11:49)
[2023-01-14] MEDS: PATIENT'S OWN MEDICATION (NON-FORMULARY) (Mirabegron [Myrbetriq] 50 MG) PO SCH (18:13)
[2023-01-14 18:30] VITALS: BP 87/64; PULSE 77; RESP 31; TEMP 97.9
== END 2023-01-14 19:15 | disposition home or self-care (01) | DRG 177 ==
LOC: JER 12:32 → JERBED 15:33 → J6S 12-29 03:19 → OBSVTOIN 12-29 10:56 → J2W 12-30 03:09 → J5S 01-04 11:43 → J2W 01-04 11:46
PROVIDERS: ADMIT Internal Medicine; ATTEND Internal Medicine
DX: J69.0 Pneumonitis due to inhalation of food and vomit (principal); G82.50 Quadriplegia, unspecified; J96.01 Acute respiratory failure with hypoxia; G12.21 Amyotrophic lateral sclerosis; N39.0 Urinary tract infection, site not specified; J98.11 Atelectasis; B37.0 Candidal stomatitis; I31.39 Other pericardial effusion (noninflammatory); J90 Pleural effusion, not elsewhere classified; I10 Essential (primary) hypertension; M06.9 Rheumatoid arthritis, unspecified; G89.29 Other chronic pain; E55.9 Vitamin D deficiency, unspecified; F32.A Depression, unspecified; M40.294 Other kyphosis, thoracic region; M41.84 Other forms of scoliosis, thoracic region; R30.0 Dysuria; B96.89 Other specified bacterial agents as the cause of diseases classified elsewhere; E66.9 Obesity, unspecified; Z68.28 Body mass index [BMI] 28.0-28.9, adult; Z74.01 Bed confinement status
CPT/HCPCS: 0241U-QW; 36415; 36600; 71045-TC-FY; 71260-TC; 74230-TC-FY; 80048; 80053; 81003; 82550; 82803; 82962; 83735; 83880; 84100; 84484; 85025; 85610; 85730; 87040; 87086; 87186; 87635; 87899; 92611-GN; 93005; 93010; 93306-TC; 94010; 94640; 94660; 94761; 97162-GP; 99285-25; G0378; J1644

== ENCOUNTER 2023-01-15 11:03 | Inpatient (IN) | payer OTHER ==
[2023-01-15] MEDS ORDERED: SODIUM CHLORIDE 0.9% 500 ML INFUS.BAG IV ONE (12:50)
[2023-01-15 12:59] LABS: BASO % 0.1 % (0-2.0); EOS % 0.4 % (0-4.5); HEMATOCRIT 43.6 % (32.4-45.2); HEMOGLOBIN 14.4 GM/dL (10.7-15.3); LYMPH % 15.4 % (8-40); MCH 32.6 pg (25.7-33.7); MEAN PLT VOLUME 9.1 fl (7.5-11.1); NEUT % 76.1 % (42.8-82.8); PLATELET COUNT 234 10^3/uL (134-434); RBC 4.41 M/mm3 (3.60-5.2); RDW 15.2 % (11.6-15.6); WHITE BLOOD COUNT 9.3 K/mm3 (4.0-10.0)
[2023-01-15 13:08] LABS: INR 0.97 (0.83-1.09); PROTHROMBIN TIME (PATIENT) 11.2 SEC (9.7-13.0)
[2023-01-15 13:10] LABS: ACTIVATED PTT 27.3 SECONDS (25.2-36.5)
[2023-01-15 13:20] LABS: POTASSIUM 5.3 mmol/L (3.5-5.1)
[2023-01-15 13:25] LABS: CALCIUM 10.1 mg/dL (8.5-10.1)
[2023-01-15 13:26] LABS: ALBUMIN 3.7 g/dl (3.4-5.0)
[2023-01-15 13:29] LABS: CREATININE 0.4 mg/dL (0.55-1.3)
[2023-01-15 13:30] LABS: BILIRUBIN,TOTAL 0.6 mg/dL (0.2-1); TOT PROT 7.3 g/dl (6.4-8.2)
[2023-01-15 16:43] LABS: VENOUS BASE EXCESS 5.3 mmol/L (-2-2); VENOUS O2 SATURATION 44.7 % (70-80); VENOUS PH 7.281 (7.310-7.410)
[2023-01-15 16:44] LABS: VENOUS PCO2 75.7 mmHg (38-52)
[2023-01-15] MEDS: RILUZOLE 50 MG PO SCH (22:00)
[2023-01-15] MEDS ORDERED: [UNRECOGNIZED DRUG - OTHER] PO SCH (22:00)
[2023-01-15] MEDS ORDERED: SOD PHENYLBUTYRAT PO SCH (22:00)
[2023-01-15] MEDS ORDERED: NORTRIPTYLINE HCL 50 MG CAPSULE PO SCH (22:00)
[2023-01-15] MEDS: oxyCODONE HCL 5 MG TABLET PO PRN (22:09)
[2023-01-15] MEDS: SENNOSIDES 8.6MG TABLET (FP) PO SCH (22:12)
[2023-01-15] MEDS: APIXABAN 5 MG TABLET PO SCH (22:12)
[2023-01-15] MEDS: clonazePAM 0.5 MG TABLET PO PRN (22:13)
[2023-01-15] MEDS: NORTRIPTYLINE HCL 25 MG CAPSULE PO SCH (22:21)
[2023-01-16] MEDS ORDERED: ZOLPIDEM TARTRATE 5 MG TABLET PO ONE ×2 (01:00→22:00)
[2023-01-16] MEDS: oxyCODONE HCL 5 MG TABLET PO PRN ×2 (06:49→21:37)
[2023-01-16] MEDS: propRANOLol HCL 10 MG TABLET PO SCH (09:30)
[2023-01-16] MEDS: APIXABAN 5 MG TABLET PO SCH ×2 (09:30→22:00)
[2023-01-16] MEDS: AMINO ACIDS/PROTEIN HYDROLYS 30 ML LIQUID.PKT PO SCH (09:31)
[2023-01-16] MEDS: predniSONE 10 MG TABLET (UD) PO SCH (09:36)
[2023-01-16] MEDS: FUROSEMIDE 40 MG TABLET (FP) PO SCH (09:38)
[2023-01-16] MEDS: POLYETHYLENE GLYCOL (HEALTHYLAX) 3350 17 GM PACKET PO SCH (09:38)
[2023-01-16] MEDS: NORTRIPTYLINE HCL 25 MG CAPSULE PO SCH ×2 (09:38→21:42)
[2023-01-16] MEDS: clonazePAM 0.5 MG TABLET PO PRN (21:40)
[2023-01-16] MEDS: SOD PHENYLBUTYRAT PO SCH (22:00)
[2023-01-16] MEDS: [UNRECOGNIZED DRUG - OTHER] PO SCH (22:00)
[2023-01-17] MEDS: SENNOSIDES 8.6MG TABLET (FP) PO SCH ×2 (05:54→22:12)
[2023-01-17] MEDS: POLYETHYLENE GLYCOL (HEALTHYLAX) 3350 17 GM PACKET PO SCH (09:46)
[2023-01-17] MEDS: AMINO ACIDS/PROTEIN HYDROLYS 30 ML LIQUID.PKT PO SCH (09:46)
[2023-01-17] MEDS: FUROSEMIDE 40 MG TABLET (FP) PO SCH (09:47)
[2023-01-17] MEDS: APIXABAN 5 MG TABLET PO SCH ×2 (09:47→21:54)
[2023-01-17] MEDS: predniSONE 10 MG TABLET (UD) PO SCH (09:47)
[2023-01-17] MEDS: NORTRIPTYLINE HCL 25 MG CAPSULE PO SCH ×2 (09:47→21:55)
[2023-01-17] MEDS: propRANOLol HCL 10 MG TABLET PO SCH (09:48)
[2023-01-17] MEDS: RILUZOLE 50 MG PO SCH ×2 (09:49→21:55)
[2023-01-17] MEDS: [UNRECOGNIZED DRUG - OTHER] PO SCH ×2 (09:51→21:56)
[2023-01-17] MEDS: SOD PHENYLBUTYRAT PO SCH ×2 (09:51→21:56)
[2023-01-17] MEDS: DOCUSATE SODIUM 100 MG CAPSULE (FP) PO SCH ×2 (14:50→21:54)
[2023-01-17 15:40] VITALS: BMI 27.3
[2023-01-17] MEDS ORDERED: ZOLPIDEM TARTRATE 5 MG TABLET PO PRN (22:00)
[2023-01-18] MEDS: DOCUSATE SODIUM 100 MG CAPSULE (FP) PO SCH ×3 (06:40→21:12)
[2023-01-18 07:40] LABS: HEMATOCRIT 39.2 % (32.4-45.2); HEMOGLOBIN 12.8 GM/dL (10.7-15.3); MCH 32.4 pg (25.7-33.7); MCHC 32.6 g/dl (32.0-36.0); MEAN CELL VOLUME 99.5 fl (80-96); MEAN PLT VOLUME 8.9 fl (7.5-11.1); PLATELET COUNT 201 10^3/uL (134-434); RBC 3.94 M/mm3 (3.60-5.2); RDW 14.5 % (11.6-15.6); WHITE BLOOD COUNT 9.5 K/mm3 (4.0-10.0)
[2023-01-18 08:01] LABS: POTASSIUM 4.3 mmol/L (3.5-5.1)
[2023-01-18 08:11] LABS: ALBUMIN 3.1 g/dl (3.4-5.0); BLOOD UREA NITROGEN 54.9 mg/dL (7-18); CALCIUM 9.3 mg/dL (8.5-10.1)
[2023-01-18 08:14] LABS: CREATININE 0.6 mg/dL (0.55-1.3)
[2023-01-18 08:15] LABS: BILIRUBIN,TOTAL 0.4 mg/dL (0.2-1); TOT PROT 6.2 g/dl (6.4-8.2)
[2023-01-18] MEDS: predniSONE 10 MG TABLET (UD) PO SCH (09:06)
[2023-01-18] MEDS: APIXABAN 5 MG TABLET PO SCH ×2 (09:06→21:13)
[2023-01-18] MEDS: AMINO ACIDS/PROTEIN HYDROLYS 30 ML LIQUID.PKT PO SCH (09:06)
[2023-01-18] MEDS: NORTRIPTYLINE HCL 25 MG CAPSULE PO SCH ×2 (09:07→21:16)
[2023-01-18] MEDS: FUROSEMIDE 40 MG TABLET (FP) PO SCH (09:07)
[2023-01-18] MEDS: RILUZOLE 50 MG PO SCH ×2 (09:11→22:00)
[2023-01-18] MEDS: ASCORBIC ACID 250 MG TABLET (FP) PO SCH (09:15)
[2023-01-18] MEDS: oxyCODONE HCL 5 MG TABLET PO PRN ×2 (09:15→23:37)
[2023-01-18] MEDS: MULTIVITAMINS (DAILY MVI) TABLET (FP) PO SCH (09:15)
[2023-01-18] MEDS: SOD PHENYLBUTYRAT PO SCH ×2 (09:19→21:16)
[2023-01-18] MEDS: propRANOLol HCL 10 MG TABLET PO SCH (09:19)
[2023-01-18] MEDS: [UNRECOGNIZED DRUG - OTHER] PO SCH ×2 (09:19→21:16)
[2023-01-18 10:21] LABS: ANISOCYTOSIS 0; MACROCYTOSIS 0
[2023-01-18] MEDS: POLYETHYLENE GLYCOL (HEALTHYLAX) 3350 17 GM PACKET PO SCH (13:30)
[2023-01-18] MEDS: SENNOSIDES 8.6MG TABLET (FP) PO SCH (21:14)
[2023-01-19] MEDS: DOCUSATE SODIUM 100 MG CAPSULE (FP) PO SCH ×3 (06:11→21:19)
[2023-01-19] MEDS: oxyCODONE HCL 5 MG TABLET PO PRN ×2 (06:27→12:33)
[2023-01-19] MEDS: NORTRIPTYLINE HCL 25 MG CAPSULE PO SCH ×2 (09:54→21:19)
[2023-01-19] MEDS: FUROSEMIDE 40 MG TABLET (FP) PO SCH (09:54)
[2023-01-19] MEDS: APIXABAN 5 MG TABLET PO SCH ×2 (09:54→21:18)
[2023-01-19] MEDS: POLYETHYLENE GLYCOL (HEALTHYLAX) 3350 17 GM PACKET PO SCH (09:54)
[2023-01-19] MEDS: MULTIVITAMINS (DAILY MVI) TABLET (FP) PO SCH (09:54)
[2023-01-19] MEDS: ASCORBIC ACID 250 MG TABLET (FP) PO SCH (09:55)
[2023-01-19] MEDS: predniSONE 10 MG TABLET (UD) PO SCH (09:55)
[2023-01-19] MEDS: propRANOLol HCL 10 MG TABLET PO SCH (09:57)
[2023-01-19] MEDS: RILUZOLE 50 MG PO SCH ×2 (10:26→21:44)
[2023-01-19] MEDS: [UNRECOGNIZED DRUG - OTHER] PO SCH ×2 (11:09→21:45)
[2023-01-19] MEDS: AMINO ACIDS/PROTEIN HYDROLYS 30 ML LIQUID.PKT PO SCH (11:09)
[2023-01-19] MEDS: SOD PHENYLBUTYRAT PO SCH ×2 (11:09→21:45)
[2023-01-19] MEDS: SENNOSIDES 8.6MG TABLET (FP) PO SCH (21:19)
[2023-01-19 23:29] VITALS: BP 98/67; PULSE 96; RESP 19; TEMP 98.6
== END 2023-01-19 23:55 | disposition home or self-care (01) | DRG 175 ==
LOC: JER 11:03 → JERBED 14:22 → J4W 21:04
PROVIDERS: ADMIT Internal Medicine; ATTEND Internal Medicine
DX: I26.99 Other pulmonary embolism without acute cor pulmonale (principal); J96.21 Acute and chronic respiratory failure with hypoxia; J96.22 Acute and chronic respiratory failure with hypercapnia; G12.21 Amyotrophic lateral sclerosis; J98.11 Atelectasis; R00.0 Tachycardia, unspecified; M06.8A Other specified rheumatoid arthritis, other specified site; E66.9 Obesity, unspecified; Z68.27 Body mass index [BMI] 27.0-27.9, adult
CPT/HCPCS: 0241U-QW; 36415; 71045-TC-FY; 71275-TC; 80053; 82803; 84484; 85025; 85610; 85730; 93005; 93010; 94660; 99291; Q9967

== ENCOUNTER 2023-01-22 11:43 | Inpatient (IN) | payer OTHER ==
[2023-01-22 13:20] LABS: BASO % 0.1 % (0-2.0); EOS % 0.3 % (0-4.5); HEMATOCRIT 45.2 % (32.4-45.2); LYMPH % 7.2 % (8-40); MCH 31.6 pg (25.7-33.7); MCHC 30.8 g/dl (32.0-36.0); MEAN CELL VOLUME 102.5 fl (80-96); MEAN PLT VOLUME 8.4 fl (7.5-11.1); MONO % 8.3 % (3.8-10.2); NEUT % 84.1 % (42.8-82.8); PLATELET COUNT 264 10^3/uL (134-434); RBC 4.42 M/mm3 (3.60-5.2); RDW 13.6 % (11.6-15.6); VENOUS BASE EXCESS 13.7 mmol/L (-2-2); VENOUS O2 SATURATION 31.1 % (70-80); VENOUS PH 7.2 (7.310-7.410); WHITE BLOOD COUNT 9.1 K/mm3 (4.0-10.0)
[2023-01-22 13:21] LABS: VENOUS PCO2 124.6 mmHg (38-52)
[2023-01-22 13:28] LABS: INR 1.43 (0.83-1.09); PROTHROMBIN TIME (PATIENT) 16.5 SEC (9.7-13.0)
[2023-01-22 13:30] LABS: ACTIVATED PTT 32.9 SECONDS (25.2-36.5)
[2023-01-22] MEDS ORDERED: ONDANSETRON 4 MG/2 ML VIAL IVPUSH ONE (13:39)
[2023-01-22] MEDS ORDERED: ACETAMINOPHEN 1000 MG/100 ML BAG IVPB ONE (13:39)
[2023-01-22 13:48] LABS: CALCIUM 10.2 mg/dL (8.5-10.1)
[2023-01-22 13:49] LABS: ALBUMIN 3.5 g/dl (3.4-5.0); BLOOD UREA NITROGEN 48.7 mg/dL (7-18)
[2023-01-22 13:52] LABS: CREATININE 0.5 mg/dL (0.55-1.3)
[2023-01-22] MEDS ORDERED: ACETAMINOPHEN INJECTION 100 ML IVPB ONE (13:52)
[2023-01-22] MEDS ORDERED: ONDANSETRON 4 MG/2 ML VIAL ONE (13:52)
[2023-01-22 13:54] LABS: BILIRUBIN,TOTAL 0.3 mg/dL (0.2-1); TOT PROT 7.2 g/dl (6.4-8.2)
[2023-01-22 15:26] LABS: VENOUS BASE EXCESS 2.6 mmol/L (-2-2); VENOUS O2 SATURATION 25.8 % (70-80); VENOUS PH 7.228 (7.310-7.410)
[2023-01-22 15:28] LABS: VENOUS PCO2 79.3 mmHg (38-52)
[2023-01-22] MEDS ORDERED: VANCOMYCIN 1,000 MG in DEXTROSE 5%-WATER - 250 ML IVPB ONE (16:20)
[2023-01-22] MEDS ORDERED: PIPERACILLIN/TAZOB 3.375 GM 3.375 GM in DEXTROSE 5%-WATER - 50 ML IVPB ONE (16:21)
[2023-01-22] MEDS ORDERED: PIPERACILLIN/TAZOB 3.375 GM 3.375 GM/50 ML BAG IVPB ONE ×2 (16:25→16:29)
[2023-01-22] MEDS ORDERED: VANCOMYCIN 1 GRAM (PRE-DOCKED) 1,000 MG/250 ML BAG IVPB ONE ×2 (17:00→17:01)
[2023-01-22] MEDS ORDERED: SUMAtriptan SUCCINATE 50 MG TABLET PO PRN (18:24)
[2023-01-22] MEDS ORDERED: NORTRIPTYLINE HCL 50 MG CAPSULE PO SCH (22:00)
[2023-01-22] MEDS ORDERED: PATIENT'S OWN MEDICATION (NON-FORMULARY) (Apixaban [Eliquis - Starter Pack (For Vte)] 5 MG PO SCH (22:00)
[2023-01-22] MEDS ORDERED: SULFASALAZINE 500 MG PO SCH (22:00)
[2023-01-22] MEDS: ZOLPIDEM TARTRATE 5 MG TABLET PO PRN (22:13)
[2023-01-22] MEDS: APIXABAN 5 MG TABLET PO SCH (22:13)
[2023-01-22] MEDS: NORTRIPTYLINE HCL 25 MG CAPSULE PO SCH (22:14)
[2023-01-22] MEDS: SENNOSIDES 8.6MG TABLET (FP) PO SCH (22:14)
[2023-01-22] MEDS: oxyCODONE HCL 5 MG TABLET PO PRN (22:18)
[2023-01-23 08:42] LABS: BASO % 0.2 % (0-2.0); EOS % 0.4 % (0-4.5); HEMATOCRIT 40.2 % (32.4-45.2); HEMOGLOBIN 12.5 GM/dL (10.7-15.3); LYMPH % 10.4 % (8-40); MCH 32.1 pg (25.7-33.7); MCHC 31.1 g/dl (32.0-36.0); MEAN CELL VOLUME 103.2 fl (80-96); MEAN PLT VOLUME 9.3 fl (7.5-11.1); MONO % 12.9 % (3.8-10.2); NEUT % 76.1 % (42.8-82.8); PLATELET COUNT 272 10^3/uL (134-434); RDW 13.8 % (11.6-15.6); WHITE BLOOD COUNT 9.8 K/mm3 (4.0-10.0)
[2023-01-23 08:56] LABS: POTASSIUM 4.2 mmol/L (3.5-5.1)
[2023-01-23 09:04] LABS: ALBUMIN 3.3 g/dl (3.4-5.0); BLOOD UREA NITROGEN 39.3 mg/dL (7-18); CALCIUM 10.3 mg/dL (8.5-10.1)
[2023-01-23 09:05] LABS: BILIRUBIN,TOTAL 0.3 mg/dL (0.2-1)
[2023-01-23 09:06] LABS: TOT PROT 6.8 g/dl (6.4-8.2)
[2023-01-23 09:07] LABS: CREATININE 0.5 mg/dL (0.55-1.3)
[2023-01-23 09:18] LABS: ARTERIAL BLD GAS O2 SATURATION 95.2 % (95-98); ARTERIAL BLOOD GAS BASE EXCESS 12.4 mmol/L (-2-2); ARTERIAL BLOOD GAS PO2 80.7 mmHg (80-100); ARTERIAL BLOOD GAS pH 7.377 (7.350-7.450)
[2023-01-23 09:22] LABS: ALLENS TEST POSITIVE
[2023-01-23 09:23] LABS: VENT MODE S/T; VENT RATE 18
[2023-01-23] MEDS: predniSONE 10 MG TABLET (UD) PO SCH (09:28)
[2023-01-23] MEDS: NORTRIPTYLINE HCL 25 MG CAPSULE PO SCH ×2 (09:28→21:32)
[2023-01-23] MEDS: POLYETHYLENE GLYCOL (HEALTHYLAX) 3350 17 GM PACKET PO SCH ×2 (09:29→09:41)
[2023-01-23] MEDS: FUROSEMIDE 40 MG TABLET (FP) PO SCH (09:29)
[2023-01-23] MEDS: AMINO ACIDS/PROTEIN HYDROLYS 30 ML LIQUID.PKT PO SCH (09:29)
[2023-01-23] MEDS: APIXABAN 5 MG TABLET PO SCH ×2 (09:29→21:32)
[2023-01-23] MEDS: propRANOLol HCL 10 MG TABLET PO SCH (09:30)
[2023-01-23] MEDS: oxyCODONE HCL 5 MG TABLET PO PRN (09:43)
[2023-01-23] MEDS ORDERED: oxyCODONE HCL 5 MG TABLET PO PRN (12:35)
[2023-01-23] MEDS ORDERED: SODIUM CHLORIDE 500 ML IV STA (17:21)
[2023-01-23] MEDS: SENNOSIDES 8.6MG TABLET (FP) PO SCH (21:32)
[2023-01-23] MEDS: ZOLPIDEM TARTRATE 5 MG TABLET PO PRN (21:33)
[2023-01-23] MEDS: clonazePAM 0.5 MG TABLET PO PRN (21:34)
[2023-01-24] MEDS ORDERED: VANCOMYCIN/WATER 1250 MG 1,250 MG/250 ML BAG IVPB ONE (04:45)
[2023-01-24] MEDS: AMINO ACIDS/PROTEIN HYDROLYS 30 ML LIQUID.PKT PO SCH (09:00)
[2023-01-24] MEDS: POLYETHYLENE GLYCOL (HEALTHYLAX) 3350 17 GM PACKET PO SCH (10:03)
[2023-01-24] MEDS: FUROSEMIDE 40 MG TABLET (FP) PO SCH (10:04)
[2023-01-24] MEDS: predniSONE 10 MG TABLET (UD) PO SCH (10:04)
[2023-01-24] MEDS: APIXABAN 5 MG TABLET PO SCH ×2 (10:04→22:09)
[2023-01-24] MEDS: NORTRIPTYLINE HCL 25 MG CAPSULE PO SCH ×2 (10:04→22:09)
[2023-01-24] MEDS: propRANOLol HCL 10 MG TABLET PO SCH (10:05)
[2023-01-24] MEDS ORDERED: morphine CARPU-JECT 2 MG/1 ML DISP.SYRIN IVPUSH PRN (10:07)
[2023-01-24] MEDS ORDERED: AMINO ACIDS 4.25%/D5W 1,000 ML IV SCH (16:15)
[2023-01-24] MEDS: AMINO ACIDS 4.25%/D5W 1,000 ML IV SCH (16:26)
[2023-01-24] MEDS: VANCOMYCIN/WATER 1250 MG 1,250 MG/250 ML BAG IVPB SCH (18:23)
[2023-01-24 18:24] LABS: EPI CELLS 12 /uL (0-25.1); HYALINE CASTS 4 /uL (0-3.1); PH,URINE 5.5 (5.0-8.0); URINE APPEARANCE CLEAR; URINE BACTERIA 32 /uL (0-1359); URINE BILIRUBIN NEGATIVE (NEGATIVE); URINE COLOR YELLOW; URINE GLUCOSE (UA) 2+ (NEGATIVE); URINE KETONE NEGATIVE (NEGATIVE); URINE LEUK ESTERASE 1+ (NEGATIVE); URINE NITRITE NEGATIVE (NEGATIVE); URINE PROTEIN 1+ (NEGATIVE); URINE RBC 15 /uL (0-23.9); URINE UROBILINOGEN 0.2 mg/dL (0.2-1.0); URINE WBC 58 /uL (0-25.8)
[2023-01-24] MEDS ORDERED: ACETAMINOPHEN 1000 MG/100 ML BAG IVPB PRN (21:08)
[2023-01-24] MEDS: SENNOSIDES 8.6MG TABLET (FP) PO SCH ×2 (22:08→22:21)
[2023-01-24] MEDS: ZOLPIDEM TARTRATE 5 MG TABLET PO PRN (22:09)
[2023-01-25] MEDS: VANCOMYCIN/WATER 1250 MG 1,250 MG/250 ML BAG IVPB SCH (06:52)
[2023-01-25] MEDS: predniSONE 10 MG TABLET (UD) PO SCH (11:14)
[2023-01-25] MEDS: APIXABAN 5 MG TABLET PO SCH (11:16)
[2023-01-25] MEDS: FUROSEMIDE 40 MG TABLET (FP) PO SCH (11:17)
[2023-01-25] MEDS: NORTRIPTYLINE HCL 25 MG CAPSULE PO SCH ×2 (11:18→21:40)
[2023-01-25] MEDS: AMINO ACIDS/PROTEIN HYDROLYS 30 ML LIQUID.PKT PO SCH (11:20)
[2023-01-25] MEDS: POLYETHYLENE GLYCOL (HEALTHYLAX) 3350 17 GM PACKET PO SCH (11:44)
[2023-01-25] MEDS: propRANOLol HCL 10 MG TABLET PO SCH (11:44)
[2023-01-25] MEDS: VANCOMYCIN/WATER FOR INJ (PEG) 1,000 MG/200 ML BAG IVPB SCH (17:32)
[2023-01-25] MEDS: AMINO ACIDS 4.25%/D5W 1,000 ML IV SCH (17:33)
[2023-01-25] MEDS: ZOLPIDEM TARTRATE 5 MG TABLET PO PRN (21:40)
[2023-01-25] MEDS: clonazePAM 0.5 MG TABLET PO PRN (21:40)
[2023-01-25] MEDS: SENNOSIDES 8.6MG TABLET (FP) PO SCH (21:55)
[2023-01-26] MEDS: VANCOMYCIN/WATER FOR INJ (PEG) 1,000 MG/200 ML BAG IVPB SCH ×2 (06:36→17:51)
[2023-01-26 07:56] LABS: HEMATOCRIT 34.8 % (32.4-45.2); HEMOGLOBIN 11.3 GM/dL (10.7-15.3); MCH 32.3 pg (25.7-33.7); MCHC 32.4 g/dl (32.0-36.0); MEAN CELL VOLUME 99.7 fl (80-96); MEAN PLT VOLUME 8.6 fl (7.5-11.1); PLATELET COUNT 215 10^3/uL (134-434); RBC 3.49 M/mm3 (3.60-5.2); RDW 13.7 % (11.6-15.6)
[2023-01-26 08:02] LABS: CHLORIDE 95 mmol/L (98-107); SODIUM 139 mmol/L (136-145)
[2023-01-26 08:10] LABS: CALCIUM 8.8 mg/dL (8.5-10.1)
[2023-01-26 08:11] LABS: ALBUMIN 2.7 g/dl (3.4-5.0); BLOOD UREA NITROGEN 39.7 mg/dL (7-18); CO2 40 mmol/L (21-32); GLUCOSE,RANDOM 100 mg/dL (74-106)
[2023-01-26 08:14] LABS: CREATININE 0.3 mg/dL (0.55-1.3); SGOT/AST 21 U/L (15-37); SGPT/ALT 17 U/L (13-61)
[2023-01-26 08:15] LABS: BILIRUBIN,TOTAL 0.3 mg/dL (0.2-1); TOT PROT 5.7 g/dl (6.4-8.2)
[2023-01-26 08:17] LABS: ALK PHOS 40 U/L (45-117)
[2023-01-26 08:18] LABS: ANION GAP 5 mmol/L (4-13); POTASSIUM 2.9 mmol/L (3.5-5.1)
[2023-01-26 08:45] LABS: ANISOCYTOSIS 1+; MACROCYTOSIS 0
[2023-01-26] MEDS: KCL 10 MEQ IVPB 10 MEQ/100 ML INFUS.BAG IVPB SCH ×3 (10:19→13:42)
[2023-01-26] MEDS: predniSONE 10 MG TABLET (UD) PO SCH (10:19)
[2023-01-26] MEDS: oxyCODONE HCL 5 MG TABLET PO PRN ×2 (10:20→18:37)
[2023-01-26] MEDS: NORTRIPTYLINE HCL 25 MG CAPSULE PO SCH ×2 (10:22→21:21)
[2023-01-26] MEDS: FUROSEMIDE 40 MG TABLET (FP) PO SCH (10:22)
[2023-01-26] MEDS: AMINO ACIDS/PROTEIN HYDROLYS 30 ML LIQUID.PKT PO SCH (10:25)
[2023-01-26] MEDS: clonazePAM 0.5 MG TABLET PO PRN ×2 (11:41→21:21)
[2023-01-26] MEDS: POLYETHYLENE GLYCOL (HEALTHYLAX) 3350 17 GM PACKET PO SCH (11:43)
[2023-01-26] MEDS: propRANOLol HCL 10 MG TABLET PO SCH (11:44)
[2023-01-26] MEDS ORDERED: TOFACITINIB CITRATE 11 MG PO SCH (15:00)
[2023-01-26] MEDS: POTASSIUM CHLORIDE 20 MEQ in AMINO ACIDS 4.25%/D5W 1,000 ML IV SCH (17:49)
[2023-01-26] MEDS: [UNRECOGNIZED DRUG - OTHER] PO SCH (17:53)
[2023-01-26 18:03] VITALS: BMI 29.6
[2023-01-26] MEDS: TOFACITINIB CITRATE 11 MG PO SCH (18:38)
[2023-01-26] MEDS: SENNOSIDES 8.6MG TABLET (FP) PO SCH (21:21)
[2023-01-26] MEDS: ZOLPIDEM TARTRATE 5 MG TABLET PO PRN (21:21)
[2023-01-27] MEDS: [UNRECOGNIZED DRUG - OTHER] PO SCH ×2 (06:29→16:39)
[2023-01-27] MEDS: VANCOMYCIN/WATER FOR INJ (PEG) 1,000 MG/200 ML BAG IVPB SCH (06:29)
[2023-01-27 08:10] LABS: POTASSIUM 3.2 mmol/L (3.5-5.1)
[2023-01-27 08:21] LABS: BLOOD UREA NITROGEN 32.6 mg/dL (7-18); MAGNESIUM 1.9 mg/dL (1.8-2.4)
[2023-01-27 08:24] LABS: CALCIUM 9.1 mg/dL (8.5-10.1)
[2023-01-27 08:25] LABS: CREATININE 0.3 mg/dL (0.55-1.3)
[2023-01-27] MEDS: predniSONE 10 MG TABLET (UD) PO SCH (09:30)
[2023-01-27] MEDS: TOFACITINIB CITRATE 11 MG PO SCH (09:30)
[2023-01-27] MEDS: FUROSEMIDE 40 MG TABLET (FP) PO SCH (09:32)
[2023-01-27] MEDS: NORTRIPTYLINE HCL 25 MG CAPSULE PO SCH ×2 (09:33→22:28)
[2023-01-27] MEDS: propRANOLol HCL 10 MG TABLET PO SCH (09:42)
[2023-01-27] MEDS: POLYETHYLENE GLYCOL (HEALTHYLAX) 3350 17 GM PACKET PO SCH (09:42)
[2023-01-27] MEDS: oxyCODONE HCL 5 MG TABLET PO PRN ×3 (09:50→22:28)
[2023-01-27] MEDS: AMINO ACIDS/PROTEIN HYDROLYS 30 ML LIQUID.PKT PO SCH (10:51)
[2023-01-27] MEDS: DAPTOMYCIN 480 MG in SODIUM CHLORIDE 50 ML IVPB SCH (15:51)
[2023-01-27] MEDS: POTASSIUM CHLORIDE 20 MEQ in AMINO ACIDS 4.25%/D5W 1,000 ML IV SCH (15:52)
[2023-01-27] MEDS: clonazePAM 0.5 MG TABLET PO PRN ×2 (16:18→23:40)
[2023-01-27] MEDS: MIRTAZAPINE 15 MG TABLET (FP) PO SCH (22:29)
[2023-01-27] MEDS: ZOLPIDEM TARTRATE 5 MG TABLET PO PRN (22:29)
[2023-01-27] MEDS: SENNOSIDES 8.6MG TABLET (FP) PO SCH (23:09)
[2023-01-28 07:49] LABS: HEMATOCRIT 36.1 % (32.4-45.2); HEMOGLOBIN 11.7 GM/dL (10.7-15.3); MCH 32.1 pg (25.7-33.7); MCHC 32.5 g/dl (32.0-36.0); MEAN PLT VOLUME 8.6 fl (7.5-11.1); PLATELET COUNT 230 10^3/uL (134-434); RBC 3.64 M/mm3 (3.60-5.2); RDW 13.9 % (11.6-15.6); WHITE BLOOD COUNT 8.8 K/mm3 (4.0-10.0)
[2023-01-28] MEDS: [UNRECOGNIZED DRUG - OTHER] PO SCH ×2 (08:00→18:12)
[2023-01-28 08:06] LABS: BLOOD UREA NITROGEN 27.8 mg/dL (7-18); CALCIUM 8.5 mg/dL (8.5-10.1)
[2023-01-28 08:07] LABS: ALBUMIN 2.8 g/dl (3.4-5.0)
[2023-01-28 08:09] LABS: CREATININE 0.2 mg/dL (0.55-1.3)
[2023-01-28 08:11] LABS: BILIRUBIN,TOTAL 0.3 mg/dL (0.2-1)
[2023-01-28] MEDS: oxyCODONE HCL 5 MG TABLET PO PRN ×3 (08:21→21:40)
[2023-01-28] MEDS: AMINO ACIDS/PROTEIN HYDROLYS 30 ML LIQUID.PKT PO SCH (08:25)
[2023-01-28 09:13] LABS: POTASSIUM 3.2 mmol/L (3.5-5.1)
[2023-01-28] MEDS ORDERED: POTASSIUM CHLORIDE ORAL LIQUID 20 MEQ/15 ML PO ONE (10:20)
[2023-01-28] MEDS: NORTRIPTYLINE HCL 25 MG CAPSULE PO SCH ×2 (10:43→21:32)
[2023-01-28] MEDS: predniSONE 10 MG TABLET (UD) PO SCH (10:43)
[2023-01-28] MEDS: FUROSEMIDE 40 MG TABLET (FP) PO SCH ×2 (10:44→11:00)
[2023-01-28] MEDS: TOFACITINIB CITRATE 11 MG PO SCH (10:49)
[2023-01-28 10:54] LABS: ANISOCYTOSIS 0; HELMET CELLS 0; HOWELL-JOLLY BODIES 0; MACROCYTOSIS 0; OVALOCYTE 0; ROULEAU 0; SICKELED CELLS 0; TARGET CELLS 0; TEAR DROP CELLS 0; TOXIC GRANULATION 0
[2023-01-28] MEDS: DAPTOMYCIN 480 MG in SODIUM CHLORIDE 50 ML IVPB SCH (11:01)
[2023-01-28] MEDS: propRANOLol HCL 10 MG TABLET PO SCH (11:02)
[2023-01-28] MEDS: POLYETHYLENE GLYCOL (HEALTHYLAX) 3350 17 GM PACKET PO SCH (11:02)
[2023-01-28] MEDS: POTASSIUM CHLORIDE 20 MEQ in AMINO ACIDS 4.25%/D5W 1,000 ML IV SCH (12:00)
[2023-01-28] MEDS: clonazePAM 0.5 MG TABLET PO PRN (21:30)
[2023-01-28] MEDS: SENNOSIDES 8.6MG TABLET (FP) PO SCH (21:31)
[2023-01-28] MEDS: MIRTAZAPINE 15 MG TABLET (FP) PO SCH (21:35)
[2023-01-28] MEDS: ZOLPIDEM TARTRATE 5 MG TABLET PO PRN (21:40)
[2023-01-29] MEDS: [UNRECOGNIZED DRUG - OTHER] PO SCH ×2 (09:00→17:27)
[2023-01-29] MEDS: FUROSEMIDE 40 MG TABLET (FP) PO SCH ×2 (11:00→11:07)
[2023-01-29] MEDS: DAPTOMYCIN 480 MG in SODIUM CHLORIDE 50 ML IVPB SCH (11:05)
[2023-01-29] MEDS: AMINO ACIDS/PROTEIN HYDROLYS 30 ML LIQUID.PKT PO SCH ×3 (11:06→17:27)
[2023-01-29] MEDS: predniSONE 10 MG TABLET (UD) PO SCH (11:07)
[2023-01-29] MEDS: TOFACITINIB CITRATE 11 MG PO SCH (11:07)
[2023-01-29] MEDS: POLYETHYLENE GLYCOL (HEALTHYLAX) 3350 17 GM PACKET PO SCH (11:08)
[2023-01-29] MEDS: propRANOLol HCL 10 MG TABLET PO SCH (11:08)
[2023-01-29] MEDS: POTASSIUM CHLORIDE 20 MEQ in AMINO ACIDS 4.25%/D5W 1,000 ML IV SCH (11:08)
[2023-01-29] MEDS: NORTRIPTYLINE HCL 25 MG CAPSULE PO SCH ×2 (11:09→21:31)
[2023-01-29] MEDS: oxyCODONE HCL 5 MG TABLET PO PRN ×2 (11:14→21:33)
[2023-01-29] MEDS: MIRTAZAPINE 15 MG TABLET (FP) PO SCH (21:31)
[2023-01-29] MEDS: ZOLPIDEM TARTRATE 5 MG TABLET PO PRN (21:33)
[2023-01-29] MEDS: clonazePAM 0.5 MG TABLET PO PRN (21:34)
[2023-01-29] MEDS: SENNOSIDES 8.6MG TABLET (FP) PO SCH (21:57)
[2023-01-30] MEDS: oxyCODONE HCL 5 MG TABLET PO PRN ×2 (06:02→21:54)
[2023-01-30] MEDS: clonazePAM 0.5 MG TABLET PO PRN ×2 (06:03→21:55)
[2023-01-30 07:27] LABS: POTASSIUM 3.7 mmol/L (3.5-5.1)
[2023-01-30 07:29] LABS: CALCIUM 8.9 mg/dL (8.5-10.1)
[2023-01-30 07:30] LABS: BLOOD UREA NITROGEN 22.1 mg/dL (7-18)
[2023-01-30 07:33] LABS: CREATININE 0.2 mg/dL (0.55-1.3)
[2023-01-30] MEDS: [UNRECOGNIZED DRUG - OTHER] PO SCH ×2 (09:00→19:01)
[2023-01-30] MEDS: DAPTOMYCIN 480 MG in SODIUM CHLORIDE 50 ML IVPB SCH (10:50)
[2023-01-30] MEDS: AMINO ACIDS/PROTEIN HYDROLYS 30 ML LIQUID.PKT PO SCH ×2 (10:51→19:01)
[2023-01-30] MEDS: predniSONE 10 MG TABLET (UD) PO SCH (10:51)
[2023-01-30] MEDS: NORTRIPTYLINE HCL 25 MG CAPSULE PO SCH ×2 (10:51→23:53)
[2023-01-30] MEDS: FUROSEMIDE 40 MG TABLET (FP) PO SCH (10:52)
[2023-01-30] MEDS: POLYETHYLENE GLYCOL (HEALTHYLAX) 3350 17 GM PACKET PO SCH (10:52)
[2023-01-30] MEDS: propRANOLol HCL 10 MG TABLET PO SCH (10:54)
[2023-01-30] MEDS: POTASSIUM CHLORIDE 20 MEQ in AMINO ACIDS 4.25%/D5W 1,000 ML IV SCH (10:56)
[2023-01-30] MEDS ORDERED: SUMAtriptan SUCCINATE 50 MG TABLET PO PRN (15:41)
[2023-01-30] MEDS: TOFACITINIB CITRATE 11 MG PO SCH (16:25)
[2023-01-30] MEDS: PATIENT'S OWN MEDICATION (NON-FORMULARY) (Riluzole [Riluzole] 50 MG Tablet) PO SCH ×4 (16:25→16:38)
[2023-01-30] MEDS: MIRTAZAPINE 15 MG TABLET (FP) PO SCH (21:16)
[2023-01-30] MEDS: ZOLPIDEM TARTRATE 5 MG TABLET PO PRN (21:16)
[2023-01-30] MEDS: SENNOSIDES 8.6MG TABLET (FP) PO SCH (21:16)
[2023-01-30] MEDS: RILUZOLE 50 MG PO SCH (21:22)
[2023-01-31] MEDS: [UNRECOGNIZED DRUG - OTHER] PO SCH ×2 (06:36→17:16)
[2023-01-31] MEDS: AMINO ACIDS/PROTEIN HYDROLYS 30 ML LIQUID.PKT PO SCH ×2 (08:45→18:59)
[2023-01-31] MEDS: predniSONE 10 MG TABLET (UD) PO SCH (09:47)
[2023-01-31] MEDS: FUROSEMIDE 40 MG TABLET (FP) PO SCH (09:48)
[2023-01-31] MEDS: POLYETHYLENE GLYCOL (HEALTHYLAX) 3350 17 GM PACKET PO SCH (09:49)
[2023-01-31] MEDS: propRANOLol HCL 10 MG TABLET PO SCH (09:50)
[2023-01-31] MEDS: RILUZOLE 50 MG PO SCH ×2 (09:51→22:38)
[2023-01-31] MEDS: DAPTOMYCIN 480 MG in SODIUM CHLORIDE 50 ML IVPB SCH (09:51)
[2023-01-31] MEDS: NORTRIPTYLINE HCL 25 MG CAPSULE PO SCH ×2 (09:52→22:37)
[2023-01-31] MEDS: TOFACITINIB CITRATE 11 MG PO SCH (10:08)
[2023-01-31] MEDS: POTASSIUM CHLORIDE 20 MEQ in AMINO ACIDS 4.25%/D5W 1,000 ML IV SCH (17:52)
[2023-01-31] MEDS: ZOLPIDEM TARTRATE 5 MG TABLET PO PRN (22:34)
[2023-01-31] MEDS: clonazePAM 0.5 MG TABLET PO PRN (22:34)
[2023-01-31] MEDS: oxyCODONE HCL 5 MG TABLET PO PRN (22:34)
[2023-01-31] MEDS: MIRTAZAPINE 15 MG TABLET (FP) PO SCH (22:37)
[2023-01-31] MEDS: SENNOSIDES 8.6MG TABLET (FP) PO SCH (22:38)
[2023-02-01] MEDS: POTASSIUM CHLORIDE 20 MEQ in AMINO ACIDS 4.25%/D5W 1,000 ML IV SCH ×3 (03:00→16:19)
[2023-02-01] MEDS: [UNRECOGNIZED DRUG - OTHER] PO SCH ×2 (11:14→17:44)
[2023-02-01] MEDS: AMINO ACIDS/PROTEIN HYDROLYS 30 ML LIQUID.PKT PO SCH ×2 (11:15→18:01)
[2023-02-01] MEDS: predniSONE 10 MG TABLET (UD) PO SCH (11:15)
[2023-02-01] MEDS: clonazePAM 0.5 MG TABLET PO PRN ×2 (11:16→21:41)
[2023-02-01] MEDS: FUROSEMIDE 40 MG TABLET (FP) PO SCH ×2 (11:16→11:38)
[2023-02-01] MEDS: RILUZOLE 50 MG PO SCH ×2 (11:18→21:45)
[2023-02-01] MEDS: NORTRIPTYLINE HCL 25 MG CAPSULE PO SCH ×2 (11:20→21:44)
[2023-02-01] MEDS: TOFACITINIB CITRATE 11 MG PO SCH (11:22)
[2023-02-01] MEDS: POLYETHYLENE GLYCOL (HEALTHYLAX) 3350 17 GM PACKET PO SCH (11:28)
[2023-02-01] MEDS: propRANOLol HCL 10 MG TABLET PO SCH (11:29)
[2023-02-01] MEDS: DAPTOMYCIN 480 MG in SODIUM CHLORIDE 50 ML IVPB SCH (11:46)
[2023-02-01] MEDS: VALSARTAN 80 MG TABLET PO SCH (13:43)
[2023-02-01] MEDS: ZOLPIDEM TARTRATE 5 MG TABLET PO PRN (21:41)
[2023-02-01] MEDS: MIRTAZAPINE 15 MG TABLET (FP) PO SCH (21:41)
[2023-02-01] MEDS: APIXABAN 5 MG TABLET PO SCH (21:42)
[2023-02-01] MEDS: oxyCODONE HCL 5 MG TABLET PO PRN (21:46)
[2023-02-01] MEDS: SENNOSIDES 8.6MG TABLET (FP) PO SCH (21:46)
[2023-02-02] MEDS: POTASSIUM CHLORIDE 20 MEQ in AMINO ACIDS 4.25%/D5W 1,000 ML IV SCH ×2 (05:33→21:43)
[2023-02-02] MEDS: [UNRECOGNIZED DRUG - OTHER] PO SCH ×2 (06:45→17:48)
[2023-02-02] MEDS: DAPTOMYCIN 480 MG in SODIUM CHLORIDE 50 ML IVPB SCH (10:43)
[2023-02-02] MEDS: AMINO ACIDS/PROTEIN HYDROLYS 30 ML LIQUID.PKT PO SCH ×2 (11:01→18:01)
[2023-02-02] MEDS: POLYETHYLENE GLYCOL (HEALTHYLAX) 3350 17 GM PACKET PO SCH (11:02)
[2023-02-02] MEDS: FUROSEMIDE 40 MG TABLET (FP) PO SCH (11:05)
[2023-02-02] MEDS: predniSONE 10 MG TABLET (UD) PO SCH (11:05)
[2023-02-02] MEDS: clonazePAM 0.5 MG TABLET PO PRN ×2 (11:06→21:43)
[2023-02-02] MEDS: oxyCODONE HCL 5 MG TABLET PO PRN (11:06)
[2023-02-02] MEDS: VALSARTAN 80 MG TABLET PO SCH (11:07)
[2023-02-02] MEDS: RILUZOLE 50 MG PO SCH ×2 (11:07→21:57)
[2023-02-02] MEDS: APIXABAN 5 MG TABLET PO SCH ×2 (11:07→21:42)
[2023-02-02] MEDS: propRANOLol HCL 10 MG TABLET PO SCH (11:08)
[2023-02-02] MEDS: NORTRIPTYLINE HCL 25 MG CAPSULE PO SCH ×2 (11:08→21:59)
[2023-02-02] MEDS: TOFACITINIB CITRATE 11 MG PO SCH (11:09)
[2023-02-02] MEDS: SENNOSIDES 8.6MG TABLET (FP) PO SCH (21:35)
[2023-02-02] MEDS: MIRTAZAPINE 15 MG TABLET (FP) PO SCH (21:42)
[2023-02-03] MEDS: [UNRECOGNIZED DRUG - OTHER] PO SCH (06:06)
[2023-02-03] MEDS: POLYETHYLENE GLYCOL (HEALTHYLAX) 3350 17 GM PACKET PO SCH (09:30)
[2023-02-03] MEDS: APIXABAN 5 MG TABLET PO SCH (09:31)
[2023-02-03] MEDS: VALSARTAN 80 MG TABLET PO SCH (09:31)
[2023-02-03] MEDS: FUROSEMIDE 40 MG TABLET (FP) PO SCH (09:31)
[2023-02-03] MEDS: predniSONE 10 MG TABLET (UD) PO SCH (09:31)
[2023-02-03] MEDS: AMINO ACIDS/PROTEIN HYDROLYS 30 ML LIQUID.PKT PO SCH (09:31)
[2023-02-03] MEDS: NORTRIPTYLINE HCL 25 MG CAPSULE PO SCH (09:33)
[2023-02-03] MEDS: propRANOLol HCL 10 MG TABLET PO SCH (09:33)
[2023-02-03] MEDS: RILUZOLE 50 MG PO SCH (09:34)
[2023-02-03 10:24] VITALS: BP 113/82; PULSE 88; RESP 18; TEMP 98.3
[2023-02-03] MEDS: TOFACITINIB CITRATE 11 MG PO SCH (10:36)
== END 2023-02-03 11:12 | disposition home health service (06) | DRG 56 ==
LOC: JER 11:43 → JERBED 15:36 → J4W 21:38 → J8W 01-30 15:11
PROVIDERS: ADMIT Internal Medicine; ATTEND Internal Medicine
DX: G12.21 Amyotrophic lateral sclerosis (principal); I26.99 Other pulmonary embolism without acute cor pulmonale; J96.22 Acute and chronic respiratory failure with hypercapnia; J96.21 Acute and chronic respiratory failure with hypoxia; R78.81 Bacteremia; I10 Essential (primary) hypertension; M06.9 Rheumatoid arthritis, unspecified
CPT/HCPCS: 0241U-QW; 36415; 36600; 71045-TC-FY; 71275-TC; 80048; 80053; 81003; 82550; 82803; 83605; 83735; 84484; 85025; 85610; 85730; 87040; 87186; 93005; 93010; 93306-TC; 94660; 99283-25; 99285-25; J0878

== ENCOUNTER 2023-02-23 20:38 | Inpatient (IN) | payer OTHER ==
[2023-02-23] MEDS ORDERED: methylPREDNISolone NA SUCC 125 MG/2 ML VIAL IVPUSH ONE (21:06)
[2023-02-23 21:14] LABS: VENOUS BASE EXCESS 7.5 mmol/L (-2-2); VENOUS O2 SATURATION 74.2 % (70-80); VENOUS PH 7.318 (7.310-7.410)
[2023-02-23 21:19] LABS: VENOUS PCO2 71.6 mmHg (38-52)
[2023-02-23 21:25] LABS: BASO % 0.3 % (0-2.0); EOS % 1.3 % (0-4.5); HEMATOCRIT 35.1 % (32.4-45.2); HEMOGLOBIN 11.1 GM/dL (10.7-15.3); LYMPH % 30.9 % (8-40); MCH 32.4 pg (25.7-33.7); MCHC 31.7 g/dl (32.0-36.0); MEAN CELL VOLUME 102.1 fl (80-96); MEAN PLT VOLUME 7.9 fl (7.5-11.1); MONO % 9.2 % (3.8-10.2); NEUT % 58.3 % (42.8-82.8); PLATELET COUNT 266 10^3/uL (134-434); RBC 3.43 M/mm3 (3.60-5.2); RDW 14.8 % (11.6-15.6); WHITE BLOOD COUNT 6.5 K/mm3 (4.0-10.0)
[2023-02-23] MEDS ORDERED: methylPREDNISolone NA SUCC 125 MG/2 ML VIAL ONE (21:32)
[2023-02-23] MEDS ORDERED: ALBUTEROL SO4 2.5/IPRATROPIUM 0.5 INH SOL 3 ML VIAL.NEB. NEB ONE (21:32)
[2023-02-23] MEDS: ALBUTEROL SO4 2.5/IPRATROPIUM 0.5 INH SOL 3 ML VIAL.NEB. NEB SCH ×4 (21:40→22:21)
[2023-02-23 21:54] LABS: N-TERMINAL BNP 119.9 pg/ml (5-125)
[2023-02-23 22:10] LABS: POTASSIUM 4.1 mmol/L (3.5-5.1)
[2023-02-23 22:13] LABS: ALBUMIN 3.3 g/dl (3.4-5.0); BLOOD UREA NITROGEN 15.6 mg/dL (7-18); CALCIUM 10.3 mg/dL (8.5-10.1)
[2023-02-23 22:16] LABS: CREATININE 0.3 mg/dL (0.55-1.3)
[2023-02-23 22:18] LABS: BILIRUBIN,TOTAL 0.4 mg/dL (0.2-1); TOT PROT 6.4 g/dl (6.4-8.2)
[2023-02-23] MEDS ORDERED: ACETAMINOPHEN 1000 MG/100 ML BAG IVPB ONE (23:36)
[2023-02-23] MEDS ORDERED: ACETAMINOPHEN INJECTION 100 ML IVPB ONE (23:58)
[2023-02-24] MEDS ORDERED: VANCOMYCIN 1,000 MG in DEXTROSE 5%-WATER - 250 ML IVPB ONE (00:39)
[2023-02-24] MEDS ORDERED: PIPERACILLIN/TAZOB 4.5 GM 4.5 GM in DEXTROSE 5%-WATER 100 ML IVPB ONE (00:39)
[2023-02-24] MEDS ORDERED: PIPERACILLIN/TAZOB 4.5 GM 4.5 GM/100 ML BAG IVPB ONE (02:16)
[2023-02-24] MEDS ORDERED: VANCOMYCIN 1 GRAM (PRE-DOCKED) 1,000 MG/250 ML BAG IVPB ONE (02:35)
[2023-02-24] MEDS: DEXTROSE 5%-NORMAL SALINE 1,000 ML IV SCH (04:37)
[2023-02-24] MEDS ORDERED: SUMAtriptan SUCCINATE 50 MG TABLET PO PRN (08:31)
[2023-02-24 09:24] LABS: BASO % 0.1 % (0-2.0); EOS % 0.1 % (0-4.5); HEMATOCRIT 31.8 % (32.4-45.2); HEMOGLOBIN 10.2 GM/dL (10.7-15.3); MCH 32.5 pg (25.7-33.7); MEAN CELL VOLUME 101.5 fl (80-96); MONO % 4.5 % (3.8-10.2); NEUT % 83.3 % (42.8-82.8); PLATELET COUNT 270 10^3/uL (134-434); RBC 3.14 M/mm3 (3.60-5.2); WHITE BLOOD COUNT 5.2 K/mm3 (4.0-10.0)
[2023-02-24 09:37] LABS: INR 1.16 (0.83-1.09); PROTHROMBIN TIME (PATIENT) 13.4 SEC (9.7-13.0)
[2023-02-24 09:39] LABS: ACTIVATED PTT 30.8 SECONDS (25.2-36.5)
[2023-02-24] MEDS ORDERED: PIPERACILLIN/TAZOB 3.375 GM 3.375 GM in DEXTROSE 5%-WATER - 50 ML IVPB SCH (10:00)
[2023-02-24] MEDS ORDERED: methylPREDNISolone NA SUCC 40 MG/1 ML VIAL IVPUSH SCH (10:00)
[2023-02-24 10:24] LABS: POTASSIUM 4.5 mmol/L (3.5-5.1)
[2023-02-24 10:42] LABS: BLOOD UREA NITROGEN 16.3 mg/dL (7-18); CALCIUM 9.7 mg/dL (8.5-10.1)
[2023-02-24 10:43] LABS: MAGNESIUM 2.2 mg/dL (1.8-2.4)
[2023-02-24 10:44] LABS: PHOSPHOROUS 3.2 mg/dL (2.5-4.9)
[2023-02-24 10:45] LABS: CREATININE 0.3 mg/dL (0.55-1.3)
[2023-02-24] MEDS: POLYETHYLENE GLYCOL (HEALTHYLAX) 3350 17 GM PACKET PO SCH (10:55)
[2023-02-24] MEDS: APIXABAN 5 MG TABLET PO SCH ×2 (10:55→22:07)
[2023-02-24] MEDS: PIPERACILLIN/TAZOB 3.375 GM 3.375 GM in DEXTROSE 5%-WATER - 50 ML IVPB SCH ×3 (10:56→22:07)
[2023-02-24 13:17] LABS: ARTERIAL BLD GAS O2 SATURATION 99.5 % (95-98); ARTERIAL BLOOD GAS BASE EXCESS 9.7 mmol/L (-2-2); ARTERIAL BLOOD GAS PO2 219.1 mmHg (80-100); ARTERIAL BLOOD GAS pH 7.422 (7.350-7.450)
[2023-02-24 13:19] LABS: ALLENS TEST POSITIVE; VENT MODE S/T
[2023-02-24 13:20] LABS: VENT RATE 12
[2023-02-24] MEDS ORDERED: VANCOMYCIN/WATER 1250 MG 1,250 MG/250 ML BAG IVPB SCH (15:00)
[2023-02-24] MEDS: VANCOMYCIN/WATER 1250 MG 1,250 MG/250 ML BAG IVPB SCH (15:13)
[2023-02-24] MEDS: oxyCODONE HCL 5 MG TABLET PO PRN (17:00)
[2023-02-24] MEDS: NORTRIPTYLINE HCL 25 MG CAPSULE PO SCH (22:07)
[2023-02-24] MEDS: SENNOSIDES 8.6MG TABLET (FP) PO SCH (22:08)
[2023-02-25] MEDS ORDERED: ZOLPIDEM TARTRATE 5 MG TABLET PO ONE (00:08)
[2023-02-25] MEDS: DEXTROSE 5%-NORMAL SALINE 1,000 ML IV SCH ×2 (01:39→10:01)
[2023-02-25] MEDS: PIPERACILLIN/TAZOB 3.375 GM 3.375 GM in DEXTROSE 5%-WATER - 50 ML IVPB SCH ×4 (03:05→22:03)
[2023-02-25] MEDS: VANCOMYCIN/WATER 1250 MG 1,250 MG/250 ML BAG IVPB SCH ×2 (03:05→14:09)
[2023-02-25] MEDS: methylPREDNISolone NA SUCC 40 MG/1 ML VIAL IVPUSH SCH (10:38)
[2023-02-25] MEDS: APIXABAN 5 MG TABLET PO SCH ×2 (10:50→22:04)
[2023-02-25] MEDS: AMINO ACIDS/PROTEIN HYDROLYS 30 ML LIQUID.PKT PO SCH (10:51)
[2023-02-25] MEDS: POLYETHYLENE GLYCOL (HEALTHYLAX) 3350 17 GM PACKET PO SCH (10:51)
[2023-02-25] MEDS: oxyCODONE HCL 5 MG TABLET PO PRN (14:09)
[2023-02-25] MEDS: NORTRIPTYLINE HCL 25 MG CAPSULE PO SCH (22:00)
[2023-02-25] MEDS: SENNOSIDES 8.6MG TABLET (FP) PO SCH (22:04)
[2023-02-26] MEDS ORDERED: ZOLPIDEM TARTRATE 5 MG TABLET PO ONE ×2 (00:52→22:54)
[2023-02-26] MEDS: PIPERACILLIN/TAZOB 3.375 GM 3.375 GM in DEXTROSE 5%-WATER - 50 ML IVPB SCH ×4 (03:00→21:58)
[2023-02-26] MEDS: VANCOMYCIN/WATER 1250 MG 1,250 MG/250 ML BAG IVPB SCH (03:00)
[2023-02-26] MEDS: DEXTROSE 5%-NORMAL SALINE 1,000 ML IV SCH (03:01)
[2023-02-26] MEDS: methylPREDNISolone NA SUCC 40 MG/1 ML VIAL IVPUSH SCH (10:29)
[2023-02-26] MEDS: AMINO ACIDS/PROTEIN HYDROLYS 30 ML LIQUID.PKT PO SCH (10:29)
[2023-02-26] MEDS: POLYETHYLENE GLYCOL (HEALTHYLAX) 3350 17 GM PACKET PO SCH (10:29)
[2023-02-26] MEDS: APIXABAN 5 MG TABLET PO SCH ×2 (10:29→22:16)
[2023-02-26] MEDS: SENNOSIDES 8.6MG TABLET (FP) PO SCH (21:57)
[2023-02-26] MEDS: NORTRIPTYLINE HCL 25 MG CAPSULE PO SCH (21:57)
[2023-02-26] MEDS: oxyCODONE HCL 5 MG TABLET PO PRN (22:09)
[2023-02-27] MEDS: PIPERACILLIN/TAZOB 3.375 GM 3.375 GM in DEXTROSE 5%-WATER - 50 ML IVPB SCH ×4 (05:30→21:39)
[2023-02-27] MEDS: methylPREDNISolone NA SUCC 40 MG/1 ML VIAL IVPUSH SCH (10:03)
[2023-02-27] MEDS: APIXABAN 5 MG TABLET PO SCH ×2 (10:03→21:41)
[2023-02-27] MEDS: AMINO ACIDS/PROTEIN HYDROLYS 30 ML LIQUID.PKT PO SCH (10:03)
[2023-02-27] MEDS: POLYETHYLENE GLYCOL (HEALTHYLAX) 3350 17 GM PACKET PO SCH (10:06)
[2023-02-27] MEDS: DEXTROSE 5%-NORMAL SALINE 1,000 ML IV SCH (10:07)
[2023-02-27] MEDS: oxyCODONE HCL 5 MG TABLET PO PRN ×2 (15:10→21:51)
[2023-02-27] MEDS: NORTRIPTYLINE HCL 25 MG CAPSULE PO SCH (21:42)
[2023-02-27] MEDS: SENNOSIDES 8.6MG TABLET (FP) PO SCH ×2 (21:42→22:08)
[2023-02-27] MEDS ORDERED: ZOLPIDEM TARTRATE 5 MG TABLET PO ONE (22:15)
[2023-02-28] MEDS: PIPERACILLIN/TAZOB 3.375 GM 3.375 GM in DEXTROSE 5%-WATER - 50 ML IVPB SCH ×4 (03:52→21:48)
[2023-02-28] MEDS: AMINO ACIDS/PROTEIN HYDROLYS 30 ML LIQUID.PKT PO SCH (08:10)
[2023-02-28] MEDS: APIXABAN 5 MG TABLET PO SCH ×2 (09:18→21:49)
[2023-02-28] MEDS: ASCORBIC ACID 250 MG TABLET (FP) PO SCH (09:21)
[2023-02-28] MEDS: MULTIVITAMINS (DAILY MVI) TABLET (FP) PO SCH (09:21)
[2023-02-28] MEDS: POLYETHYLENE GLYCOL (HEALTHYLAX) 3350 17 GM PACKET PO SCH (09:32)
[2023-02-28] MEDS: methylPREDNISolone NA SUCC 40 MG/1 ML VIAL IVPUSH SCH (09:43)
[2023-02-28] MEDS: VANCOMYCIN/WATER FOR INJ (PEG) 1,000 MG/200 ML BAG IVPB SCH (13:54)
[2023-02-28] MEDS: oxyCODONE HCL 5 MG TABLET PO PRN ×2 (15:35→22:57)
[2023-02-28 17:15] LABS: PH,URINE 5.5 (5.0-8.0); URINE APPEARANCE CLOUDY; URINE BILIRUBIN NEGATIVE (NEGATIVE); URINE COLOR DK YELLOW; URINE GLUCOSE (UA) TRACE (NEGATIVE); URINE KETONE TRACE (NEGATIVE); URINE LEUK ESTERASE NEGATIVE (NEGATIVE); URINE NITRITE NEGATIVE (NEGATIVE); URINE PROTEIN TRACE (NEGATIVE); URINE UROBILINOGEN 0.2 mg/dL (0.2-1.0)
[2023-02-28] MEDS: DEXTROSE 5%-NORMAL SALINE 1,000 ML IV SCH (19:55)
[2023-02-28] MEDS: SENNOSIDES 8.6MG TABLET (FP) PO SCH (21:49)
[2023-02-28] MEDS: NORTRIPTYLINE HCL 25 MG CAPSULE PO SCH (21:49)
[2023-02-28] MEDS ORDERED: ZOLPIDEM TARTRATE 5 MG TABLET PO ONE (22:19)
[2023-03-01] MEDS: VANCOMYCIN/WATER FOR INJ (PEG) 1,000 MG/200 ML BAG IVPB SCH ×2 (00:56→13:44)
[2023-03-01] MEDS: PIPERACILLIN/TAZOB 3.375 GM 3.375 GM in DEXTROSE 5%-WATER - 50 ML IVPB SCH ×4 (03:06→20:15)
[2023-03-01] MEDS: DEXTROSE 5%-NORMAL SALINE 1,000 ML IV SCH (03:16)
[2023-03-01] MEDS: AMINO ACIDS/PROTEIN HYDROLYS 30 ML LIQUID.PKT PO SCH (08:18)
[2023-03-01] MEDS: POLYETHYLENE GLYCOL (HEALTHYLAX) 3350 17 GM PACKET PO SCH (10:53)
[2023-03-01] MEDS: MULTIVITAMINS (DAILY MVI) TABLET (FP) PO SCH (10:54)
[2023-03-01] MEDS: APIXABAN 5 MG TABLET PO SCH ×2 (10:54→21:45)
[2023-03-01] MEDS: ASCORBIC ACID 250 MG TABLET (FP) PO SCH (10:54)
[2023-03-01] MEDS ORDERED: ZOLPIDEM TARTRATE 5 MG TABLET PO ONE (21:26)
[2023-03-01] MEDS: NORTRIPTYLINE HCL 25 MG CAPSULE PO SCH (21:45)
[2023-03-01] MEDS: SENNOSIDES 8.6MG TABLET (FP) PO SCH ×2 (21:45→21:50)
[2023-03-02] MEDS: VANCOMYCIN/WATER FOR INJ (PEG) 1,000 MG/200 ML BAG IVPB SCH ×2 (00:03→12:41)
[2023-03-02] MEDS: PIPERACILLIN/TAZOB 3.375 GM 3.375 GM in DEXTROSE 5%-WATER - 50 ML IVPB SCH ×4 (03:19→20:44)
[2023-03-02] MEDS: DEXTROSE 5%-NORMAL SALINE 1,000 ML IV SCH ×2 (05:39→18:53)
[2023-03-02 07:42] LABS: CHLORIDE 104 mmol/L (98-107); SODIUM 141 mmol/L (136-145)
[2023-03-02 07:53] LABS: CALCIUM 8.4 mg/dL (8.5-10.1)
[2023-03-02 07:54] LABS: BLOOD UREA NITROGEN 4.3 mg/dL (7-18); CO2 29 mmol/L (21-32); GLUCOSE,RANDOM 86 mg/dL (74-106)
[2023-03-02 08:00] LABS: BASO % 0.1 % (0-2.0); HEMATOCRIT 28.7 % (32.4-45.2); HEMOGLOBIN 9.5 GM/dL (10.7-15.3); LYMPH % 19.2 % (8-40); MCH 33.2 pg (25.7-33.7); MCHC 33.1 g/dl (32.0-36.0); MEAN CELL VOLUME 100.1 fl (80-96); MEAN PLT VOLUME 8.5 fl (7.5-11.1); MONO % 5.9 % (3.8-10.2); NEUT % 73.8 % (42.8-82.8); PLATELET COUNT 208 10^3/uL (134-434); RBC 2.87 M/mm3 (3.60-5.2); RDW 14.8 % (11.6-15.6); WHITE BLOOD COUNT 6.2 K/mm3 (4.0-10.0)
[2023-03-02 08:40] LABS: ANION GAP 9 mmol/L (4-13); CREATININE < 0.2 mg/dL (0.55-1.3)
[2023-03-02] MEDS: ASCORBIC ACID 250 MG TABLET (FP) PO SCH (09:20)
[2023-03-02] MEDS: MULTIVITAMINS (DAILY MVI) TABLET (FP) PO SCH (09:20)
[2023-03-02] MEDS: AMINO ACIDS/PROTEIN HYDROLYS 30 ML LIQUID.PKT PO SCH (09:20)
[2023-03-02] MEDS: POLYETHYLENE GLYCOL (HEALTHYLAX) 3350 17 GM PACKET PO SCH ×2 (09:20→13:22)
[2023-03-02] MEDS: APIXABAN 5 MG TABLET PO SCH ×2 (09:20→21:00)
[2023-03-02] MEDS: KCL 10 MEQ IVPB 10 MEQ/100 ML INFUS.BAG IVPB SCH ×3 (14:21→16:27)
[2023-03-02] MEDS: POTASSIUM CHLORIDE ORAL LIQUID 20 MEQ/15 ML PO SCH ×2 (14:21→21:01)
[2023-03-02] MEDS: predniSONE 20 MG TABLET (UD) PO SCH (14:21)
[2023-03-02] MEDS: oxyCODONE HCL 5 MG TABLET PO PRN ×2 (15:49→21:00)
[2023-03-02 16:45] LABS: LIPASE 25 U/L (73-393); MAGNESIUM 1.5 mg/dL (1.8-2.4)
[2023-03-02 16:48] LABS: PHOSPHOROUS 2.4 mg/dL (2.5-4.9)
[2023-03-02 16:53] LABS: N-TERMINAL BNP 2656.4 pg/ml (5-125)
[2023-03-02 20:53] VITALS: BMI 30.6
[2023-03-02] MEDS: NORTRIPTYLINE HCL 25 MG CAPSULE PO SCH (21:00)
[2023-03-02] MEDS ORDERED: ZOLPIDEM TARTRATE 5 MG TABLET PO ONE (21:09)
[2023-03-03] MEDS ORDERED: MAGNESIUM SULFATE IN WATER 2 GM/50 ML IVPB IVPB ONE (00:04)
[2023-03-03] MEDS: VANCOMYCIN/WATER FOR INJ (PEG) 1,000 MG/200 ML BAG IVPB SCH ×2 (01:30→13:11)
[2023-03-03 02:04] LABS: CHOLESTEROL 161 mg/dL (50-200)
[2023-03-03 02:05] LABS: LDL CHOLESTEROL (ONLY SJRH) 91 mg/dL (5-100)
[2023-03-03 02:10] LABS: HDL CHOLESTEROL 59 mg/dL (40-60)
[2023-03-03] MEDS: PIPERACILLIN/TAZOB 3.375 GM 3.375 GM in DEXTROSE 5%-WATER - 50 ML IVPB SCH ×4 (03:58→21:58)
[2023-03-03] MEDS: DEXTROSE 5%-NORMAL SALINE 1,000 ML IV SCH ×2 (03:58→15:56)
[2023-03-03 07:18] LABS: POTASSIUM 3.5 mmol/L (3.5-5.1)
[2023-03-03 07:19] LABS: BASO % 0.1 % (0-2.0); EOS % 0.6 % (0-4.5); HEMATOCRIT 29.9 % (32.4-45.2); HEMOGLOBIN 9.5 GM/dL (10.7-15.3); LYMPH % 17.3 % (8-40); MCHC 31.8 g/dl (32.0-36.0); MEAN CELL VOLUME 100.8 fl (80-96); MEAN PLT VOLUME 8.6 fl (7.5-11.1); MONO % 8.1 % (3.8-10.2); NEUT % 73.9 % (42.8-82.8); PLATELET COUNT 243 10^3/uL (134-434); RBC 2.96 M/mm3 (3.60-5.2); RDW 15.9 % (11.6-15.6); WHITE BLOOD COUNT 6.1 K/mm3 (4.0-10.0)
[2023-03-03 07:24] LABS: BLOOD UREA NITROGEN 5.1 mg/dL (7-18); CALCIUM 8.4 mg/dL (8.5-10.1); MAGNESIUM 2.1 mg/dL (1.8-2.4)
[2023-03-03 07:27] LABS: CREATININE 0.2 mg/dL (0.55-1.3)
[2023-03-03 07:28] LABS: BILIRUBIN,TOTAL 0.6 mg/dL (0.2-1); TOT PROT 5.2 g/dl (6.4-8.2)
[2023-03-03 07:31] LABS: ALBUMIN 2.4 g/dl (3.4-5.0)
[2023-03-03] MEDS: AMINO ACIDS/PROTEIN HYDROLYS 30 ML LIQUID.PKT PO SCH ×2 (09:21→18:10)
[2023-03-03] MEDS: APIXABAN 5 MG TABLET PO SCH ×2 (09:21→22:03)
[2023-03-03] MEDS: predniSONE 20 MG TABLET (UD) PO SCH (09:24)
[2023-03-03] MEDS: MULTIVITAMINS (DAILY MVI) TABLET (FP) PO SCH (09:24)
[2023-03-03] MEDS: POTASSIUM CHLORIDE ORAL LIQUID 20 MEQ/15 ML PO SCH ×2 (09:25→22:01)
[2023-03-03] MEDS: ASCORBIC ACID 250 MG TABLET (FP) PO SCH (09:26)
[2023-03-03] MEDS: FUROSEMIDE 40 MG/4 ML INJECTABLE VIAL IVPUSH SCH (14:31)
[2023-03-03] MEDS: oxyCODONE HCL 5 MG TABLET PO PRN (21:55)
[2023-03-03] MEDS ORDERED: ZOLPIDEM TARTRATE 5 MG TABLET PO ONE (21:57)
[2023-03-03] MEDS: NORTRIPTYLINE HCL 25 MG CAPSULE PO SCH (22:03)
[2023-03-04] MEDS: VANCOMYCIN/WATER FOR INJ (PEG) 1,000 MG/200 ML BAG IVPB SCH ×2 (00:34→13:39)
[2023-03-04] MEDS: PIPERACILLIN/TAZOB 3.375 GM 3.375 GM in DEXTROSE 5%-WATER - 50 ML IVPB SCH ×4 (03:44→23:45)
[2023-03-04] MEDS: DEXTROSE 5%-NORMAL SALINE 1,000 ML IV SCH (03:48)
[2023-03-04 06:58] LABS: BASO % 0.3 % (0-2.0); HEMOGLOBIN 9.6 GM/dL (10.7-15.3); LYMPH % 26.7 % (8-40); MCH 32.7 pg (25.7-33.7); MEAN CELL VOLUME 102.2 fl (80-96); MEAN PLT VOLUME 8.5 fl (7.5-11.1); MONO % 10.5 % (3.8-10.2); NEUT % 61.5 % (42.8-82.8); PLATELET COUNT 244 10^3/uL (134-434); RBC 2.94 M/mm3 (3.60-5.2); RDW 16.3 % (11.6-15.6); WHITE BLOOD COUNT 7.1 K/mm3 (4.0-10.0)
[2023-03-04 07:05] LABS: POTASSIUM 3.5 mmol/L (3.5-5.1)
[2023-03-04 07:11] LABS: CALCIUM 8.4 mg/dL (8.5-10.1)
[2023-03-04 07:12] LABS: ALBUMIN 2.5 g/dl (3.4-5.0)
[2023-03-04 07:15] LABS: CREATININE 0.2 mg/dL (0.55-1.3)
[2023-03-04 07:17] LABS: BILIRUBIN,TOTAL 0.5 mg/dL (0.2-1); TOT PROT 5.4 g/dl (6.4-8.2)
[2023-03-04] MEDS: AMINO ACIDS/PROTEIN HYDROLYS 30 ML LIQUID.PKT PO SCH ×2 (09:01→18:30)
[2023-03-04 10:43] LABS: MAGNESIUM 1.9 mg/dL (1.8-2.4)
[2023-03-04] MEDS: MULTIVITAMINS (DAILY MVI) TABLET (FP) PO SCH (10:54)
[2023-03-04] MEDS: predniSONE 5 MG TABLET (UD) PO SCH (10:54)
[2023-03-04] MEDS: ASCORBIC ACID 250 MG TABLET (FP) PO SCH (10:54)
[2023-03-04] MEDS: FUROSEMIDE 40 MG/4 ML INJECTABLE VIAL IVPUSH SCH (10:54)
[2023-03-04] MEDS: APIXABAN 5 MG TABLET PO SCH ×2 (10:54→23:49)
[2023-03-04] MEDS ORDERED: KCL 10 MEQ IVPB 10 MEQ/100 ML INFUS.BAG IVPB SCH (11:15)
[2023-03-04] MEDS ORDERED: POTASSIUM CHLORIDE ORAL LIQUID 20 MEQ/15 ML PO ONE (14:00)
[2023-03-04] MEDS ORDERED: FUROSEMIDE 40 MG/4 ML INJECTABLE VIAL IVPUSH ONE (15:15)
[2023-03-04] MEDS ORDERED: ZOLPIDEM TARTRATE 5 MG TABLET PO ONE (22:00)
[2023-03-04] MEDS: NORTRIPTYLINE HCL 25 MG CAPSULE PO SCH (23:49)
[2023-03-04] MEDS: oxyCODONE HCL 5 MG TABLET PO PRN (23:52)
[2023-03-05] MEDS: VANCOMYCIN/WATER FOR INJ (PEG) 1,000 MG/200 ML BAG IVPB SCH ×2 (01:09→13:23)
[2023-03-05] MEDS: PIPERACILLIN/TAZOB 3.375 GM 3.375 GM in DEXTROSE 5%-WATER - 50 ML IVPB SCH ×4 (03:28→21:37)
[2023-03-05] MEDS: AMINO ACIDS/PROTEIN HYDROLYS 30 ML LIQUID.PKT PO SCH ×2 (10:39→18:28)
[2023-03-05] MEDS: predniSONE 5 MG TABLET (UD) PO SCH (10:40)
[2023-03-05] MEDS: APIXABAN 5 MG TABLET PO SCH ×2 (10:40→21:39)
[2023-03-05] MEDS: ASCORBIC ACID 250 MG TABLET (FP) PO SCH (10:40)
[2023-03-05] MEDS: MULTIVITAMINS (DAILY MVI) TABLET (FP) PO SCH (10:40)
[2023-03-05] MEDS: DULoxetine HCL 30 MG CAPSULE.DR PO SCH (11:24)
[2023-03-05] MEDS: ESCITALOPRAM OXALATE 10 MG TABLET PO SCH (11:24)
[2023-03-05] MEDS: clonazePAM 0.5 MG TABLET PO SCH ×2 (11:24→21:39)
[2023-03-05] MEDS: FUROSEMIDE 40 MG/4 ML INJECTABLE VIAL IVPUSH SCH (21:11)
[2023-03-05] MEDS: NORTRIPTYLINE HCL 25 MG CAPSULE PO SCH (21:38)
[2023-03-05] MEDS ORDERED: ZOLPIDEM TARTRATE 5 MG TABLET PO PRN (22:00)
[2023-03-06] MEDS: VANCOMYCIN/WATER FOR INJ (PEG) 1,000 MG/200 ML BAG IVPB SCH ×2 (00:24→13:41)
[2023-03-06] MEDS: PIPERACILLIN/TAZOB 3.375 GM 3.375 GM in DEXTROSE 5%-WATER - 50 ML IVPB SCH ×4 (03:20→22:15)
[2023-03-06] MEDS: ASCORBIC ACID 250 MG TABLET (FP) PO SCH (10:31)
[2023-03-06] MEDS: ESCITALOPRAM OXALATE 10 MG TABLET PO SCH (10:31)
[2023-03-06] MEDS: clonazePAM 0.5 MG TABLET PO SCH ×2 (10:31→22:17)
[2023-03-06] MEDS: MULTIVITAMINS (DAILY MVI) TABLET (FP) PO SCH (10:31)
[2023-03-06] MEDS: DULoxetine HCL 30 MG CAPSULE.DR PO SCH (10:32)
[2023-03-06] MEDS: APIXABAN 5 MG TABLET PO SCH ×2 (10:32→22:17)
[2023-03-06] MEDS: metoPROLOL SUCCINATE 25 MG TAB.SR.24H (FP) PO SCH (10:32)
[2023-03-06] MEDS: FUROSEMIDE 40 MG/4 ML INJECTABLE VIAL IVPUSH SCH (10:33)
[2023-03-06] MEDS: AMINO ACIDS/PROTEIN HYDROLYS 30 ML LIQUID.PKT PO SCH ×2 (10:33→18:00)
[2023-03-06] MEDS: predniSONE 5 MG TABLET (UD) PO SCH (10:33)
[2023-03-06] MEDS: oxyCODONE HCL 5 MG TABLET PO PRN (11:50)
[2023-03-06] MEDS ORDERED: POTASSIUM CHLORIDE ORAL LIQUID 20 MEQ/15 ML PO ONE (15:30)
[2023-03-06] MEDS: NORTRIPTYLINE HCL 25 MG CAPSULE PO SCH (22:17)
[2023-03-07] MEDS: PIPERACILLIN/TAZOB 3.375 GM 3.375 GM in DEXTROSE 5%-WATER - 50 ML IVPB SCH ×4 (03:00→21:22)
[2023-03-07] MEDS: AMINO ACIDS/PROTEIN HYDROLYS 30 ML LIQUID.PKT PO SCH ×2 (08:15→17:39)
[2023-03-07] MEDS: FUROSEMIDE 40 MG/4 ML INJECTABLE VIAL IVPUSH SCH (10:40)
[2023-03-07] MEDS: DULoxetine HCL 30 MG CAPSULE.DR PO SCH (10:58)
[2023-03-07] MEDS: predniSONE 5 MG TABLET (UD) PO SCH (10:58)
[2023-03-07] MEDS: ASCORBIC ACID 250 MG TABLET (FP) PO SCH (10:58)
[2023-03-07] MEDS: MULTIVITAMINS (DAILY MVI) TABLET (FP) PO SCH (10:59)
[2023-03-07] MEDS: ESCITALOPRAM OXALATE 10 MG TABLET PO SCH (10:59)
[2023-03-07] MEDS: clonazePAM 0.5 MG TABLET PO SCH ×2 (10:59→21:23)
[2023-03-07] MEDS: metoPROLOL SUCCINATE 25 MG TAB.SR.24H (FP) PO SCH (11:03)
[2023-03-07] MEDS: APIXABAN 5 MG TABLET PO SCH ×2 (11:04→21:23)
[2023-03-07] MEDS: oxyCODONE HCL 5 MG TABLET PO PRN ×2 (11:51→18:10)
[2023-03-07] MEDS: NORTRIPTYLINE HCL 25 MG CAPSULE PO SCH (21:23)
[2023-03-08] MEDS: PIPERACILLIN/TAZOB 3.375 GM 3.375 GM in DEXTROSE 5%-WATER - 50 ML IVPB SCH ×2 (03:29→10:00)
[2023-03-08] MEDS: oxyCODONE HCL 5 MG TABLET PO PRN ×2 (06:58→16:26)
[2023-03-08 07:57] LABS: CHLORIDE 95 mmol/L (98-107); SODIUM 142 mmol/L (136-145)
[2023-03-08 07:58] LABS: CALCIUM 8.8 mg/dL (8.5-10.1)
[2023-03-08 07:59] LABS: ALBUMIN 2.9 g/dl (3.4-5.0); BLOOD UREA NITROGEN 12.6 mg/dL (7-18); CO2 40 mmol/L (21-32); GLUCOSE,RANDOM 82 mg/dL (74-106); MAGNESIUM 1.7 mg/dL (1.8-2.4)
[2023-03-08 08:02] LABS: CREATININE < 0.2 mg/dL (0.55-1.3); SGOT/AST 24 U/L (15-37); SGPT/ALT 14 U/L (13-61)
[2023-03-08 08:04] LABS: BILIRUBIN,TOTAL 0.5 mg/dL (0.2-1)
[2023-03-08 08:05] LABS: ALK PHOS 46 U/L (45-117)
[2023-03-08 08:12] LABS: ANION GAP 6 mmol/L (4-13); POTASSIUM 2.3 mmol/L (3.5-5.1)
[2023-03-08] MEDS: clonazePAM 0.5 MG TABLET PO SCH ×2 (10:00→21:41)
[2023-03-08] MEDS: AMINO ACIDS/PROTEIN HYDROLYS 30 ML LIQUID.PKT PO SCH ×2 (10:14→17:56)
[2023-03-08] MEDS: metoPROLOL SUCCINATE 25 MG TAB.SR.24H (FP) PO SCH (10:15)
[2023-03-08] MEDS: ASCORBIC ACID 250 MG TABLET (FP) PO SCH (10:15)
[2023-03-08] MEDS: FUROSEMIDE 40 MG/4 ML INJECTABLE VIAL IVPUSH SCH (10:15)
[2023-03-08] MEDS: DULoxetine HCL 30 MG CAPSULE.DR PO SCH (10:17)
[2023-03-08] MEDS: MULTIVITAMINS (DAILY MVI) TABLET (FP) PO SCH (10:18)
[2023-03-08] MEDS: ESCITALOPRAM OXALATE 10 MG TABLET PO SCH (10:18)
[2023-03-08] MEDS: predniSONE 5 MG TABLET (UD) PO SCH (10:18)
[2023-03-08] MEDS: APIXABAN 5 MG TABLET PO SCH ×2 (10:18→21:40)
[2023-03-08] MEDS ORDERED: POTASSIUM CHLORIDE ORAL LIQUID 20 MEQ/15 ML PO ONE (10:45)
[2023-03-08] MEDS ORDERED: MAGNESIUM SULF 50% (8.12 MEQ/2 ML-1 GM VIAL) IVPB ONE (10:46)
[2023-03-08] MEDS: ACETAMINOPHEN 325 MG TABLET (FP) PO PRN (11:29)
[2023-03-08] MEDS: KCL 10 MEQ IVPB 10 MEQ/100 ML INFUS.BAG IVPB SCH ×3 (11:31→13:44)
[2023-03-08] MEDS ORDERED: KCL 10 MEQ IVPB 10 MEQ/100 ML INFUS.BAG IVPB SCH (16:15)
[2023-03-08] MEDS: NORTRIPTYLINE HCL 25 MG CAPSULE PO SCH (21:41)
[2023-03-09] MEDS: oxyCODONE HCL 5 MG TABLET PO PRN (00:01)
[2023-03-09] MEDS: clonazePAM 0.5 MG TABLET PO SCH ×3 (00:03→23:23)
[2023-03-09] MEDS: NORTRIPTYLINE HCL 25 MG CAPSULE PO SCH ×2 (00:03→23:23)
[2023-03-09] MEDS: APIXABAN 5 MG TABLET PO SCH ×3 (00:05→23:22)
[2023-03-09 07:23] LABS: BASO % 0.3 % (0-2.0); EOS % 0.8 % (0-4.5); HEMATOCRIT 33.1 % (32.4-45.2); HEMOGLOBIN 10.5 GM/dL (10.7-15.3); LYMPH % 23.5 % (8-40); MCH 32.8 pg (25.7-33.7); MCHC 31.6 g/dl (32.0-36.0); MEAN CELL VOLUME 103.6 fl (80-96); MEAN PLT VOLUME 7.9 fl (7.5-11.1); MONO % 8.8 % (3.8-10.2); NEUT % 66.6 % (42.8-82.8); PLATELET COUNT 271 10^3/uL (134-434); RBC 3.19 M/mm3 (3.60-5.2); RDW 15.3 % (11.6-15.6)
[2023-03-09 07:51] LABS: CHLORIDE 96 mmol/L (98-107); POTASSIUM 3.1 mmol/L (3.5-5.1); SODIUM 144 mmol/L (136-145)
[2023-03-09 08:21] LABS: CALCIUM 9.6 mg/dL (8.5-10.1)
[2023-03-09 08:22] LABS: ANION GAP 6 mmol/L (4-13); BLOOD UREA NITROGEN 13.3 mg/dL (7-18); CO2 41 mmol/L (21-32); GLUCOSE,RANDOM 80 mg/dL (74-106); MAGNESIUM 2.1 mg/dL (1.8-2.4)
[2023-03-09 08:25] LABS: CREATININE < 0.2 mg/dL (0.55-1.3); SGOT/AST 23 U/L (15-37); SGPT/ALT 15 U/L (13-61)
[2023-03-09 08:26] LABS: BILIRUBIN,TOTAL 0.4 mg/dL (0.2-1); TOT PROT 6.3 g/dl (6.4-8.2)
[2023-03-09 08:28] LABS: ALK PHOS 50 U/L (45-117)
[2023-03-09] MEDS: AMINO ACIDS/PROTEIN HYDROLYS 30 ML LIQUID.PKT PO SCH ×2 (09:44→17:16)
[2023-03-09] MEDS: metoPROLOL SUCCINATE 25 MG TAB.SR.24H (FP) PO SCH (09:44)
[2023-03-09] MEDS: MULTIVITAMINS (DAILY MVI) TABLET (FP) PO SCH (09:44)
[2023-03-09] MEDS: ASCORBIC ACID 250 MG TABLET (FP) PO SCH (09:45)
[2023-03-09] MEDS: predniSONE 5 MG TABLET (UD) PO SCH (09:45)
[2023-03-09] MEDS: DULoxetine HCL 30 MG CAPSULE.DR PO SCH (09:45)
[2023-03-09] MEDS: ESCITALOPRAM OXALATE 10 MG TABLET PO SCH (09:45)
[2023-03-09] MEDS: FUROSEMIDE 40 MG/4 ML INJECTABLE VIAL IVPUSH SCH (09:45)
[2023-03-09] MEDS ORDERED: POTASSIUM CHLORIDE ORAL LIQUID 20 MEQ/15 ML PO ONE (10:00)
[2023-03-09] MEDS: ZOLPIDEM TARTRATE 5 MG TABLET PO PRN (23:24)
[2023-03-10 07:56] LABS: CHLORIDE 94 mmol/L (98-107); SODIUM 139 mmol/L (136-145)
[2023-03-10 08:03] LABS: BLOOD UREA NITROGEN 15.9 mg/dL (7-18); CO2 38 mmol/L (21-32); GLUCOSE,RANDOM 79 mg/dL (74-106)
[2023-03-10 08:06] LABS: CREATININE 0.2 mg/dL (0.55-1.3)
[2023-03-10 08:18] LABS: ANION GAP 7 mmol/L (4-13); POTASSIUM 2.8 mmol/L (3.5-5.1)
[2023-03-10] MEDS ORDERED: POTASSIUM CHLORIDE ORAL LIQUID 20 MEQ/15 ML PO ONE (10:00)
[2023-03-10] MEDS: DULoxetine HCL 30 MG CAPSULE.DR PO SCH (10:23)
[2023-03-10] MEDS: metoPROLOL SUCCINATE 25 MG TAB.SR.24H (FP) PO SCH (10:23)
[2023-03-10] MEDS: ASCORBIC ACID 250 MG TABLET (FP) PO SCH (10:23)
[2023-03-10] MEDS: APIXABAN 5 MG TABLET PO SCH ×2 (10:23→22:43)
[2023-03-10] MEDS: MULTIVITAMINS (DAILY MVI) TABLET (FP) PO SCH (10:23)
[2023-03-10] MEDS: predniSONE 5 MG TABLET (UD) PO SCH (10:24)
[2023-03-10] MEDS: clonazePAM 0.5 MG TABLET PO SCH ×2 (10:24→22:40)
[2023-03-10] MEDS: AMINO ACIDS/PROTEIN HYDROLYS 30 ML LIQUID.PKT PO SCH ×2 (10:24→17:32)
[2023-03-10] MEDS: FUROSEMIDE 40 MG/4 ML INJECTABLE VIAL IVPUSH SCH (10:24)
[2023-03-10] MEDS: ESCITALOPRAM OXALATE 10 MG TABLET PO SCH (10:24)
[2023-03-10] MEDS: KCL 10 MEQ IVPB 10 MEQ/100 ML INFUS.BAG IVPB SCH ×3 (10:54→13:30)
[2023-03-10] MEDS: oxyCODONE HCL 5 MG TABLET PO PRN ×2 (11:50→22:42)
[2023-03-10] MEDS: ACETAMINOPHEN 325 MG TABLET (FP) PO PRN (13:49)
[2023-03-10] MEDS: ZOLPIDEM TARTRATE 5 MG TABLET PO PRN (22:41)
[2023-03-10] MEDS: NORTRIPTYLINE HCL 25 MG CAPSULE PO SCH (22:41)
[2023-03-11 07:34] LABS: CHLORIDE 97 mmol/L (98-107); POTASSIUM 3.1 mmol/L (3.5-5.1); SODIUM 141 mmol/L (136-145)
[2023-03-11 07:42] LABS: BLOOD UREA NITROGEN 20.3 mg/dL (7-18); CALCIUM 9.1 mg/dL (8.5-10.1); GLUCOSE,RANDOM 86 mg/dL (74-106)
[2023-03-11 07:44] LABS: ANION GAP 7 mmol/L (4-13); CO2 37 mmol/L (21-32); MAGNESIUM 1.8 mg/dL (1.8-2.4)
[2023-03-11 07:45] LABS: CREATININE < 0.2 mg/dL (0.55-1.3)
[2023-03-11] MEDS: AMINO ACIDS/PROTEIN HYDROLYS 30 ML LIQUID.PKT PO SCH ×2 (09:30→17:44)
[2023-03-11] MEDS: DULoxetine HCL 30 MG CAPSULE.DR PO SCH (09:32)
[2023-03-11] MEDS: ASCORBIC ACID 250 MG TABLET (FP) PO SCH (09:32)
[2023-03-11] MEDS: FUROSEMIDE 40 MG/4 ML INJECTABLE VIAL IVPUSH SCH (09:32)
[2023-03-11] MEDS: metoPROLOL SUCCINATE 25 MG TAB.SR.24H (FP) PO SCH (09:32)
[2023-03-11] MEDS: APIXABAN 5 MG TABLET PO SCH ×2 (09:32→21:33)
[2023-03-11] MEDS: clonazePAM 0.5 MG TABLET PO SCH ×2 (09:32→21:33)
[2023-03-11] MEDS: MULTIVITAMINS (DAILY MVI) TABLET (FP) PO SCH (09:32)
[2023-03-11] MEDS: predniSONE 5 MG TABLET (UD) PO SCH (09:33)
[2023-03-11] MEDS: ESCITALOPRAM OXALATE 10 MG TABLET PO SCH (09:33)
[2023-03-11] MEDS ORDERED: LOPERAMIDE HCL 1 MG/5 ML UNIT DOSE CUP PO ONE (10:19)
[2023-03-11] MEDS ORDERED: POTASSIUM CHLORIDE ORAL LIQUID 20 MEQ/15 ML PO ONE (10:19)
[2023-03-11] MEDS ORDERED: LOPERAMIDE HCL 1 MG/7.5 ML LIQUID PO ONE (10:45)
[2023-03-11] MEDS: ZOLPIDEM TARTRATE 5 MG TABLET PO PRN (21:33)
[2023-03-11] MEDS: NORTRIPTYLINE HCL 25 MG CAPSULE PO SCH (21:33)
[2023-03-11] MEDS: ACETAMINOPHEN 325 MG TABLET (FP) PO PRN (21:38)
[2023-03-12 07:14] LABS: HEMATOCRIT 31.3 % (32.4-45.2); HEMOGLOBIN 10.1 GM/dL (10.7-15.3); MCH 33.2 pg (25.7-33.7); MCHC 32.4 g/dl (32.0-36.0); MEAN CELL VOLUME 102.7 fl (80-96); MEAN PLT VOLUME 8.3 fl (7.5-11.1); PLATELET COUNT 237 10^3/uL (134-434); RBC 3.05 M/mm3 (3.60-5.2); WHITE BLOOD COUNT 6.5 K/mm3 (4.0-10.0)
[2023-03-12 07:29] LABS: CHLORIDE 100 mmol/L (98-107); SODIUM 143 mmol/L (136-145)
[2023-03-12 07:38] LABS: CALCIUM 9.4 mg/dL (8.5-10.1); CO2 36 mmol/L (21-32); GLUCOSE,RANDOM 92 mg/dL (74-106)
[2023-03-12 07:39] LABS: BLOOD UREA NITROGEN 18.3 mg/dL (7-18); MAGNESIUM 1.8 mg/dL (1.8-2.4)
[2023-03-12 07:42] LABS: ANION GAP 7 mmol/L (4-13); CREATININE < 0.2 mg/dL (0.55-1.3); PHOSPHOROUS 3.3 mg/dL (2.5-4.9); POTASSIUM 2.9 mmol/L (3.5-5.1)
[2023-03-12] MEDS ORDERED: POTASSIUM CHLORIDE ORAL LIQUID 20 MEQ/15 ML PO ONE ×2 (08:38→11:30)
[2023-03-12] MEDS ORDERED: POTASSIUM CHLORIDE TABS 20 MEQ TABLET.ER (FP) PO SCH (10:00)
[2023-03-12] MEDS: MULTIVITAMINS (DAILY MVI) TABLET (FP) PO SCH (11:11)
[2023-03-12] MEDS: APIXABAN 5 MG TABLET PO SCH ×2 (11:11→22:16)
[2023-03-12] MEDS: predniSONE 5 MG TABLET (UD) PO SCH (11:11)
[2023-03-12] MEDS: FUROSEMIDE 40 MG TABLET (FP) PO SCH (11:11)
[2023-03-12] MEDS: ESCITALOPRAM OXALATE 10 MG TABLET PO SCH (11:12)
[2023-03-12] MEDS: metoPROLOL SUCCINATE 25 MG TAB.SR.24H (FP) PO SCH (11:12)
[2023-03-12] MEDS: DULoxetine HCL 30 MG CAPSULE.DR PO SCH (11:12)
[2023-03-12] MEDS: ASCORBIC ACID 250 MG TABLET (FP) PO SCH (11:12)
[2023-03-12] MEDS: POTASSIUM CHLORIDE TABS 20 MEQ TABLET.ER (FP) PO SCH ×2 (11:12→22:16)
[2023-03-12] MEDS: AMINO ACIDS/PROTEIN HYDROLYS 30 ML LIQUID.PKT PO SCH ×2 (11:13→19:42)
[2023-03-12] MEDS ORDERED: clonazePAM 0.5 MG TABLET PO PRN (11:52)
[2023-03-12] MEDS: clonazePAM 0.5 MG TABLET PO SCH (12:14)
[2023-03-12] MEDS: oxyCODONE HCL 5 MG TABLET PO PRN ×2 (14:35→22:27)
[2023-03-12] MEDS: NORTRIPTYLINE HCL 25 MG CAPSULE PO SCH (22:17)
[2023-03-12] MEDS: ZOLPIDEM TARTRATE 5 MG TABLET PO PRN (22:56)
[2023-03-13] MEDS: AMINO ACIDS/PROTEIN HYDROLYS 30 ML LIQUID.PKT PO SCH ×2 (09:06→18:32)
[2023-03-13] MEDS: APIXABAN 5 MG TABLET PO SCH ×2 (10:13→21:45)
[2023-03-13] MEDS: metoPROLOL SUCCINATE 25 MG TAB.SR.24H (FP) PO SCH (10:13)
[2023-03-13] MEDS: DULoxetine HCL 30 MG CAPSULE.DR PO SCH (10:13)
[2023-03-13] MEDS: ASCORBIC ACID 250 MG TABLET (FP) PO SCH (10:13)
[2023-03-13] MEDS: MULTIVITAMINS (DAILY MVI) TABLET (FP) PO SCH (10:14)
[2023-03-13] MEDS: FUROSEMIDE 40 MG TABLET (FP) PO SCH (10:14)
[2023-03-13] MEDS: predniSONE 5 MG TABLET (UD) PO SCH (10:14)
[2023-03-13] MEDS: POTASSIUM CHLORIDE TABS 20 MEQ TABLET.ER (FP) PO SCH ×2 (10:14→21:45)
[2023-03-13] MEDS: ESCITALOPRAM OXALATE 10 MG TABLET PO SCH (10:14)
[2023-03-13 13:49] LABS: POTASSIUM 4.1 mmol/L (3.5-5.1)
[2023-03-13 13:51] LABS: CALCIUM 9.3 mg/dL (8.5-10.1)
[2023-03-13 13:52] LABS: BLOOD UREA NITROGEN 16.8 mg/dL (7-18)
[2023-03-13 13:55] LABS: CREATININE 0.2 mg/dL (0.55-1.3)
[2023-03-13] MEDS: oxyCODONE HCL 5 MG TABLET PO PRN (18:31)
[2023-03-13] MEDS: NORTRIPTYLINE HCL 25 MG CAPSULE PO SCH (21:44)
[2023-03-13] MEDS: ZOLPIDEM TARTRATE 5 MG TABLET PO PRN (21:45)
[2023-03-13] MEDS: clonazePAM 0.5 MG TABLET PO PRN (21:45)
[2023-03-14 07:42] LABS: POTASSIUM 4.1 mmol/L (3.5-5.1)
[2023-03-14 07:47] LABS: BLOOD UREA NITROGEN 17.1 mg/dL (7-18); CALCIUM 8.8 mg/dL (8.5-10.1)
[2023-03-14 07:50] LABS: CREATININE 0.2 mg/dL (0.55-1.3)
[2023-03-14] MEDS: AMINO ACIDS/PROTEIN HYDROLYS 30 ML LIQUID.PKT PO SCH ×2 (08:59→18:04)
[2023-03-14] MEDS: ASCORBIC ACID 250 MG TABLET (FP) PO SCH (11:00)
[2023-03-14] MEDS: ZINC SULFATE 220 MG CAPSULE (FP) PO SCH (11:00)
[2023-03-14] MEDS: metoPROLOL SUCCINATE 25 MG TAB.SR.24H (FP) PO SCH (11:00)
[2023-03-14] MEDS: DULoxetine HCL 30 MG CAPSULE.DR PO SCH (11:00)
[2023-03-14] MEDS: predniSONE 5 MG TABLET (UD) PO SCH (11:00)
[2023-03-14] MEDS: FUROSEMIDE 40 MG TABLET (FP) PO SCH (11:00)
[2023-03-14] MEDS: MULTIVITAMINS (DAILY MVI) TABLET (FP) PO SCH (11:00)
[2023-03-14] MEDS: ESCITALOPRAM OXALATE 10 MG TABLET PO SCH (11:01)
[2023-03-14] MEDS: APIXABAN 5 MG TABLET PO SCH ×2 (11:01→21:31)
[2023-03-14] MEDS: POTASSIUM CHLORIDE TABS 20 MEQ TABLET.ER (FP) PO SCH ×2 (11:05→21:30)
[2023-03-14] MEDS: oxyCODONE HCL 5 MG TABLET PO PRN ×2 (12:36→18:38)
[2023-03-14] MEDS: clonazePAM 0.5 MG TABLET PO PRN (21:31)
[2023-03-14] MEDS: ZOLPIDEM TARTRATE 5 MG TABLET PO PRN (21:31)
[2023-03-14] MEDS: NORTRIPTYLINE HCL 25 MG CAPSULE PO SCH (21:31)
[2023-03-15] MEDS: POTASSIUM CHLORIDE TABS 20 MEQ TABLET.ER (FP) PO SCH ×2 (10:24→21:42)
[2023-03-15] MEDS: ESCITALOPRAM OXALATE 10 MG TABLET PO SCH (10:25)
[2023-03-15] MEDS: APIXABAN 5 MG TABLET PO SCH ×2 (10:26→21:43)
[2023-03-15] MEDS: predniSONE 5 MG TABLET (UD) PO SCH (10:26)
[2023-03-15] MEDS: metoPROLOL SUCCINATE 25 MG TAB.SR.24H (FP) PO SCH (10:26)
[2023-03-15] MEDS: DULoxetine HCL 30 MG CAPSULE.DR PO SCH (10:26)
[2023-03-15] MEDS: MULTIVITAMINS (DAILY MVI) TABLET (FP) PO SCH (10:26)
[2023-03-15] MEDS: FUROSEMIDE 40 MG TABLET (FP) PO SCH (10:26)
[2023-03-15] MEDS: ZINC SULFATE 220 MG CAPSULE (FP) PO SCH (10:26)
[2023-03-15] MEDS: ASCORBIC ACID 250 MG TABLET (FP) PO SCH (10:26)
[2023-03-15] MEDS: AMINO ACIDS/PROTEIN HYDROLYS 30 ML LIQUID.PKT PO SCH ×2 (10:27→18:34)
[2023-03-15] MEDS: oxyCODONE HCL 5 MG TABLET PO PRN (10:39)
[2023-03-15] MEDS: NORTRIPTYLINE HCL 25 MG CAPSULE PO SCH (21:43)
[2023-03-15] MEDS: clonazePAM 0.5 MG TABLET PO PRN (21:51)
[2023-03-15] MEDS: ZOLPIDEM TARTRATE 5 MG TABLET PO PRN (21:51)
[2023-03-16] MEDS: metoPROLOL SUCCINATE 25 MG TAB.SR.24H (FP) PO SCH (13:05)
[2023-03-16] MEDS: AMINO ACIDS/PROTEIN HYDROLYS 30 ML LIQUID.PKT PO SCH ×2 (13:05→16:58)
[2023-03-16] MEDS: predniSONE 5 MG TABLET (UD) PO SCH (13:05)
[2023-03-16] MEDS: MULTIVITAMINS (DAILY MVI) TABLET (FP) PO SCH (13:05)
[2023-03-16] MEDS: APIXABAN 5 MG TABLET PO SCH ×2 (13:05→22:09)
[2023-03-16] MEDS: POTASSIUM CHLORIDE TABS 20 MEQ TABLET.ER (FP) PO SCH ×2 (13:06→22:08)
[2023-03-16] MEDS: ZINC SULFATE 220 MG CAPSULE (FP) PO SCH (13:06)
[2023-03-16] MEDS: ASCORBIC ACID 250 MG TABLET (FP) PO SCH (13:06)
[2023-03-16] MEDS: DULoxetine HCL 30 MG CAPSULE.DR PO SCH (13:06)
[2023-03-16] MEDS: ESCITALOPRAM OXALATE 10 MG TABLET PO SCH (13:06)
[2023-03-16] MEDS: FUROSEMIDE 40 MG TABLET (FP) PO SCH (13:06)
[2023-03-16] MEDS ORDERED: LIDOCAINE 5% TOPICAL PATCH TP ONE (19:45)
[2023-03-16] MEDS ORDERED: LIDOCAINE 4% PATCH TP ONE (19:45)
[2023-03-16] MEDS: NORTRIPTYLINE HCL 25 MG CAPSULE PO SCH (22:07)
[2023-03-16] MEDS: ZOLPIDEM TARTRATE 5 MG TABLET PO PRN (22:08)
[2023-03-16] MEDS: clonazePAM 0.5 MG TABLET PO PRN (22:09)
[2023-03-16] MEDS ORDERED: oxyCODONE HCL 5 MG TABLET PO ONE (22:30)
[2023-03-17] MEDS ORDERED: LIDOCAINE PATCH REMOVAL MC ONE (08:00)
[2023-03-17] MEDS: AMINO ACIDS/PROTEIN HYDROLYS 30 ML LIQUID.PKT PO SCH (10:32)
[2023-03-17] MEDS: DULoxetine HCL 30 MG CAPSULE.DR PO SCH (10:32)
[2023-03-17] MEDS: FUROSEMIDE 40 MG TABLET (FP) PO SCH (10:33)
[2023-03-17] MEDS: ZINC SULFATE 220 MG CAPSULE (FP) PO SCH (10:33)
[2023-03-17] MEDS: ESCITALOPRAM OXALATE 10 MG TABLET PO SCH (10:33)
[2023-03-17] MEDS: ASCORBIC ACID 250 MG TABLET (FP) PO SCH (10:33)
[2023-03-17] MEDS: MULTIVITAMINS (DAILY MVI) TABLET (FP) PO SCH (10:33)
[2023-03-17] MEDS: metoPROLOL SUCCINATE 25 MG TAB.SR.24H (FP) PO SCH (10:33)
[2023-03-17] MEDS: predniSONE 5 MG TABLET (UD) PO SCH (10:33)
[2023-03-17] MEDS: POTASSIUM CHLORIDE TABS 20 MEQ TABLET.ER (FP) PO SCH (10:33)
[2023-03-17] MEDS: APIXABAN 5 MG TABLET PO SCH (10:33)
[2023-03-17 10:38] VITALS: RESP 18
[2023-03-17 13:41] VITALS: BP 139/103; PULSE 85; TEMP 97.8
== END 2023-03-17 14:07 | disposition home or self-care (01) | DRG 193 ==
LOC: JER 20:38 → JERBED 02-24 02:58 → J6S 02-24 06:03 → J4W 02-24 14:28
PROVIDERS: ADMIT Internal Medicine; ATTEND Internal Medicine
DX: J18.9 Pneumonia, unspecified organism (principal); J96.21 Acute and chronic respiratory failure with hypoxia; J96.22 Acute and chronic respiratory failure with hypercapnia; G12.21 Amyotrophic lateral sclerosis; I47.20 Ventricular tachycardia, unspecified; J98.11 Atelectasis; I10 Essential (primary) hypertension; I48.91 Unspecified atrial fibrillation; M06.9 Rheumatoid arthritis, unspecified; R50.9 Fever, unspecified; G89.29 Other chronic pain; K52.9 Noninfective gastroenteritis and colitis, unspecified; E87.6 Hypokalemia; D64.9 Anemia, unspecified; G47.09 Other insomnia; E55.9 Vitamin D deficiency, unspecified; E66.9 Obesity, unspecified; Z68.29 Body mass index [BMI] 29.0-29.9, adult; F32.A Depression, unspecified; G47.00 Insomnia, unspecified; Z74.01 Bed confinement status; Z86.711 Personal history of pulmonary embolism
CPT/HCPCS: 0241U-QW; 36415; 36600; 71045-TC-FY; 71275-TC; 80048; 80053; 80061; 81003; 82272; 82550; 82728; 82803; 83036; 83540; 83550; 83605; 83690; 83735; 83880; 84100; 84443; 84466; 84484; 85025; 85027; 85610; 85730; 87086; 87899; 93005; 93010; 94660; 99285-25; E0186; G0480; Q9967